=== PATIENT | female | born 1995 | race Caucasian/White ===

== ENCOUNTER 2020-07-07 16:11 | Outpatient (REF) | payer OTHER, SELFPAY | END 2020-07-07 16:12 | disposition home or self-care (01) | LOC: HO.LNP 16:11 | PROVIDERS: Visit Provider Hospitalist | DX: Z20.828 Contact with and (suspected) exposure to other viral communicable diseases (principal) | CPT/HCPCS: U0003 ==

== ENCOUNTER 2020-09-05 09:24 | Outpatient (REF) | payer OTHER, SELFPAY ==
[2020-09-05 11:18] LABS: SARS COV2 IgG Positive (Negative)
== END 2020-09-05 09:25 | disposition home or self-care (01) ==
LOC: HO.WFDLDS 09:24
PROVIDERS: PCP Internal Medicine; Visit Provider Nurse Practitioner Family
DX: Z20.828 Contact with and (suspected) exposure to other viral communicable diseases (principal)
CPT/HCPCS: 86769

== ENCOUNTER 2020-09-28 11:25 | Outpatient (REF) | payer OTHER, SELFPAY ==
[2020-09-28 14:00] LABS: MANUAL DIFF FLAG NO
[2020-09-28 14:08] LABS: Basophils Percent Auto 0.5 % (0-2); Eosinophils Absolute Auto 0.2 X10*3/uL (0.0-0.4); Eosinophils Percent Auto 2.8 % (0-4); Hematocrit 43.3 % (37-47); Hemoglobin 14.1 g/dl (12.0-16.0); Imm Gran Abs Auto 0.01 X10*3/uL (0.00-0.03); Imm Gran Pct Auto 0.2 % (0.0-0.4); Lymphocytes Absolute Auto 2.1 X10*3/uL (1.2-4.9); Mean Corpuscular HGB Conc 32.6 g/dl (31.0-35.0); Mean Corpuscular Hemoglobin 28.1 pg (27.0-33.0); Mean Corpuscular Volume 86.4 fL (80-98); Mean Platelet Volume 11.2 fL (9.4-12.3); Monocytes Absolute Auto 0.3 X10*3/uL (0.1-1.2); Monocytes Percent Auto 5.5 % (2-11); Platelet Count 223 X10*3/uL (160-400); Red Blood Count 5.01 X10*6/uL (4.20-5.50); Red Cell Distribution Width 13.2 % (11.0-16.0); White Blood Count 5.6 X10*3/uL (4.8-10.8)
[2020-09-28 14:14] LABS: D Dimer < 200 NG/ML
[2020-09-28 14:37] LABS: Anion Gap 11 (12-20); Blood Urea Nitrogen 11 mg/dL (9-16); Calcium 9.4 mg/dL (8.4-10.2); Carbon Dioxide 28 mmol/L (22-29); Chloride 104 mmol/L (96-108); Estimated Glomerular Filt Rate > 60; Glucose Random 81 mg/dL (60-115); Potassium 4.4 mmol/l (3.3-5.1); Sodium 139 mmol/L (135-145)
[2020-09-28 15:00] LABS: TSH reflex Free T4 0.73 mIU/mL (0.32-4.0)
== END 2020-09-28 11:26 | disposition home or self-care (01) ==
LOC: HO.HMGCLDS 11:25
PROVIDERS: PCP Internal Medicine; Visit Provider Nurse Practitioner Family
DX: R51.9 Headache, unspecified (principal)
CPT/HCPCS: 36415; 80048; 84443; 85025; 85379

== ENCOUNTER 2020-10-03 09:01 | Outpatient (REF) | payer OTHER, SELFPAY ==
[2020-10-04 09:46] LABS: BV Int Neg Control Negative (Negative); BV Int Pos Control Positive (Positive)
[2020-10-04 19:02] LABS: C. trachomatis RNA TMA NOT DETECTED (NOT DETECTED); N. gonorrhoeae RNA TMA NOT DETECTED (NOT DETECTED)
== END 2020-10-03 09:02 | disposition home or self-care (01) ==
LOC: HO.LAB 09:01
PROVIDERS: PCP Internal Medicine; Visit Provider Advanced Practice Midwife
DX: Z01.419 Encounter for gynecological examination (general) (routine) without abnormal findings (principal); R10.31 Right lower quadrant pain; N92.5 Other specified irregular menstruation
CPT/HCPCS: 36415; 81025; 87480; 87491; 87510; 87591; 87660; 88142

== ENCOUNTER 2020-10-05 11:37 | Outpatient (REF) | payer OTHER, SELFPAY ==
[2020-10-05 12:25] LABS: Influenza A PCR NEGATIVE (Negative); Influenza B PCR NEGATIVE (Negative); Resp Syncy Virus RNA Qual PCR NEGATIVE (Negative); SARS COV2 PCR INHOUSE NEGATIVE (Negative)
== END 2020-10-05 11:38 | disposition home or self-care (01) ==
LOC: HO.LNP 11:37
PROVIDERS: Visit Provider Physician Assistant
DX: J02.9 Acute pharyngitis, unspecified (principal); R68.89 Other general symptoms and signs; Z20.822 Contact with and (suspected) exposure to COVID-19
CPT/HCPCS: 0241U

== ENCOUNTER 2020-10-16 10:42 | Outpatient (REF) | payer OTHER, SELFPAY ==
--- NOTE | ~2020-10-16 | US_ITS ---
EXAMINATION: US PELVIS COMPLETE US PELVIS TRANSVAGINAL CLINICAL INFORMATION: Pelvic pain. LMP 10/11/2020. COMPARISON: CT abdomen/pelvis dated 05/13/2013 and pelvic ultrasound dated 12/19/2009. TECHNIQUE: Transabdominal and transvaginal Imaging was performed. FINDINGS: The uterus is of normal size and echogenicity measuring 10 x 2.6 x 4.1 cm. A regular homogeneous endometrium is identified measuring 0.2 cm. Both ovaries are of normal size and echogenicity. The right measures 4.3 x 2.6 x 3.5 cm for a volume of 20.3 mL. Multiple simple right ovarian cysts versus dominant follicles measuring up to 3.1, 1.6, and 1.4 cm. The left measures 3.3 x 1.8 x 2.3 cm for a volume of 7.4 mL. There is no pelvic free fluid. US/US pelvic complete IMPRESSION: 1. Multiple right ovarian cysts versus dominant follicles measuring up to 3.1 cm. 2. Sonographically unremarkable uterus, endometrium, and left ovary.
--- NOTE | ~2020-10-16 | US_ITS ---
EXAMINATION: US PELVIS COMPLETE US PELVIS TRANSVAGINAL CLINICAL INFORMATION: Pelvic pain. LMP 10/11/2020. COMPARISON: CT abdomen/pelvis dated 05/13/2013 and pelvic ultrasound dated 12/19/2009. TECHNIQUE: Transabdominal and transvaginal Imaging was performed. FINDINGS: The uterus is of normal size and echogenicity measuring 10 x 2.6 x 4.1 cm. A regular homogeneous endometrium is identified measuring 0.2 cm. Both ovaries are of normal size and echogenicity. The right measures 4.3 x 2.6 x 3.5 cm for a volume of 20.3 mL. Multiple simple right ovarian cysts versus dominant follicles measuring up to 3.1, 1.6, and 1.4 cm. The left measures 3.3 x 1.8 x 2.3 cm for a volume of 7.4 mL. There is no pelvic free fluid. US/US transvaginal IMPRESSION: 1. Multiple right ovarian cysts versus dominant follicles measuring up to 3.1 cm. 2. Sonographically unremarkable uterus, endometrium, and left ovary.
== END 2020-10-16 10:43 | disposition home or self-care (01) ==
LOC: HO.US 10:42
PROVIDERS: Visit Provider Advanced Practice Midwife
DX: R10.2 Pelvic and perineal pain (principal)
CPT/HCPCS: 76830; 76856

== ENCOUNTER 2020-10-24 10:23 | Outpatient (REF) | payer OTHER, SELFPAY ==
[2020-10-24 12:25] LABS: Vitamin D 25-OH Total 18.1 ng/mL (>30)
[2020-10-25 09:10] LABS: SARS COV2 IgG Positive (Negative)
[2020-10-25 17:36] LABS: C. trachomatis RNA TMA NOT DETECTED (NOT DETECTED); N. gonorrhoeae RNA TMA NOT DETECTED (NOT DETECTED)
== END 2020-10-24 10:24 | disposition home or self-care (01) ==
LOC: HO.HMGCLDS 10:23
PROVIDERS: PCP Internal Medicine; Visit Provider Internal Medicine
DX: R51.9 Headache, unspecified (principal); R42 Dizziness and giddiness; Z86.16 Personal history of COVID-19; Z01.84 Encounter for antibody response examination
CPT/HCPCS: 36415; 82306; 86769; 87491; 87591

== ENCOUNTER → 2020-10-30 12:39 | Outpatient (BNVA) | payer OTHER, SELFPAY | PROVIDERS: PCP Internal Medicine; Visit Provider Advanced Practice Midwife | DX: Z71.2 Person consulting for explanation of examination or test findings (principal); N83.209 Unspecified ovarian cyst, unspecified side; R10.2 Pelvic and perineal pain | CPT/HCPCS: Q3014 ==

== ENCOUNTER 2020-11-21 11:36 | Outpatient (REF) | payer OTHER, SELFPAY ==
[2020-11-21 16:14] LABS: CT PCR NOT DETECTED (Not Detect.); NG PCR NOT DETECTED (Not Detect.)
[2020-11-22 09:05] LABS: BV Int Neg Control Negative (Negative); BV Int Pos Control Positive (Positive)
== END 2020-11-21 11:37 | disposition home or self-care (01) ==
LOC: HO.LAB 11:36
PROVIDERS: PCP Internal Medicine; Visit Provider Advanced Practice Midwife
DX: R10.2 Pelvic and perineal pain (principal); Z20.2 Contact with and (suspected) exposure to infections with a predominantly sexual mode of transmission; Z32.02 Encounter for pregnancy test, result negative
CPT/HCPCS: 81003; 81025; 87480; 87491; 87510; 87591; 87660; 99212

== ENCOUNTER 2020-12-19 10:55 | Outpatient (REF) | payer OTHER, SELFPAY ==
--- NOTE | ~2020-12-19 | US_ITS ---
EXAMINATION: US PELVIC COMPLETE US TRANSVAGINAL CLINICAL INFORMATION: Pelvic and perineal pain. COMPARISON: Ultrasound pelvis 10/16/2020. TECHNIQUE: Transabdominal and transvaginal imaging if the pelvis is performed. FINDINGS: The uterus is anteverted measuring 9.6 cm in length, 2.9 cm AP and 4.1 cm in transverse dimension. The uterus is homogeneous in echotexture. The endometrial thickness is 0.29 cm. The right ovary measures 3.7 x 3.2 x 3.7 cm and volume 22.7 mL. There is a simple anechoic cyst measuring 3.3 x 2.6 x 3.3 cm. Previously the right ovary measured 4.3 x 2.6 x 3.5 cm and volume 20.3 mL. The left ovary measures 3.0 x 2.0 x 2.8 cm and volume 13.1 mL. There is a simple anechoic cyst measuring 2.2 x 2.0 x 1.8 cm. Previously the left ovary measured 3.3 x 1.8 x 2.3 cm and volume 7.4 mL. There is small amount of free fluid in the cul-de-sac. US/US transvaginal IMPRESSION: Bilateral simple ovarian cysts. The uterus is unremarkable. There is trace small amount of free fluid in the cul-de-sac.
--- NOTE | ~2020-12-19 | US_ITS ---
EXAMINATION: US PELVIC COMPLETE US TRANSVAGINAL CLINICAL INFORMATION: Pelvic and perineal pain. COMPARISON: Ultrasound pelvis 10/16/2020. TECHNIQUE: Transabdominal and transvaginal imaging if the pelvis is performed. FINDINGS: The uterus is anteverted measuring 9.6 cm in length, 2.9 cm AP and 4.1 cm in transverse dimension. The uterus is homogeneous in echotexture. The endometrial thickness is 0.29 cm. The right ovary measures 3.7 x 3.2 x 3.7 cm and volume 22.7 mL. There is a simple anechoic cyst measuring 3.3 x 2.6 x 3.3 cm. Previously the right ovary measured 4.3 x 2.6 x 3.5 cm and volume 20.3 mL. The left ovary measures 3.0 x 2.0 x 2.8 cm and volume 13.1 mL. There is a simple anechoic cyst measuring 2.2 x 2.0 x 1.8 cm. Previously the left ovary measured 3.3 x 1.8 x 2.3 cm and volume 7.4 mL. There is small amount of free fluid in the cul-de-sac. US/US pelvic complete IMPRESSION: Bilateral simple ovarian cysts. The uterus is unremarkable. There is trace small amount of free fluid in the cul-de-sac.
== END 2020-12-19 10:56 | disposition home or self-care (01) ==
LOC: HO.US 10:55
PROVIDERS: PCP Internal Medicine; Visit Provider Advanced Practice Midwife
DX: R10.2 Pelvic and perineal pain (principal); N83.209 Unspecified ovarian cyst, unspecified side
CPT/HCPCS: 76830; 76856

== ENCOUNTER → 2020-12-28 13:40 | Outpatient (BNVA) | payer OTHER, SELFPAY | PROVIDERS: Visit Provider Obstetrics & Gynecology | DX: R10.2 Pelvic and perineal pain (principal); N83.201 Unspecified ovarian cyst, right side; N83.202 Unspecified ovarian cyst, left side | CPT/HCPCS: Q3014 ==

== ENCOUNTER 2021-02-27 14:36 | Outpatient (REF) | payer OTHER, SELFPAY ==
[2021-02-28 09:40] LABS: BV Int Neg Control Negative (Negative); BV Int Pos Control Positive (Positive)
== END 2021-02-27 14:37 | disposition home or self-care (01) ==
LOC: HO.LAB 14:36
PROVIDERS: PCP Internal Medicine; Visit Provider Advanced Practice Midwife
DX: R10.2 Pelvic and perineal pain (principal); N92.1 Excessive and frequent menstruation with irregular cycle; L70.9 Acne, unspecified
CPT/HCPCS: 81025; 87480; 87510; 87660; 99212

== ENCOUNTER → 2021-04-09 14:41 | Outpatient (BNVA) | payer OTHER, SELFPAY | PROVIDERS: Visit Provider Advanced Practice Midwife ==

== ENCOUNTER → 2021-04-12 14:59 | Outpatient (BNVA) | payer OTHER, SELFPAY | PROVIDERS: PCP Internal Medicine; Visit Provider Advanced Practice Midwife | DX: N92.1 Excessive and frequent menstruation with irregular cycle (principal) | CPT/HCPCS: 96372; 99211 ==

== ENCOUNTER → 2021-07-04 12:57 | Outpatient (BNVA) | payer OTHER, SELFPAY | PROVIDERS: Visit Provider Advanced Practice Midwife | DX: Z30.42 Encounter for surveillance of injectable contraceptive (principal) | CPT/HCPCS: 96372; 99211 ==

== ENCOUNTER 2021-09-18 09:23 | Outpatient (REF) | payer OTHER, SELFPAY ==
[2021-09-18 15:36] LABS: CT PCR NOT DETECTED (Not Detect.); NG PCR NOT DETECTED (Not Detect.)
== END 2021-09-18 09:24 | disposition home or self-care (01) ==
LOC: HO.LAB 09:23
PROVIDERS: Visit Provider Obstetrics & Gynecology
DX: Z11.3 Encounter for screening for infections with a predominantly sexual mode of transmission (principal); R10.2 Pelvic and perineal pain
CPT/HCPCS: 87491; 87591; 99212

== ENCOUNTER → 2021-09-24 14:49 | Outpatient (BNVA) | payer OTHER, SELFPAY | PROVIDERS: Visit Provider Advanced Practice Midwife | DX: Z30.42 Encounter for surveillance of injectable contraceptive (principal) | CPT/HCPCS: 96372; 99211 ==

== ENCOUNTER 2021-10-11 08:24 | Outpatient (REF) | payer OTHER, SELFPAY ==
--- NOTE | ~2021-10-11 | CT_ITS ---
EXAMINATION: CT ABDOMEN AND PELVIS WITH CONTRAST CLINICAL INFORMATION: Pelvic and perineal pain. COMPARISON: CT abdomen and pelvis without contrast 05/13/2013 TECHNIQUE: Multidetector volumetric images were obtained from the superior aspect of the liver through the pubic symphysis following administration 85 mL of Omnipaque 350 intravenous contrast. Sagittal and coronal reformatted images were obtained on the technologist's workstation. Oral contrast: No This CT examination was performed using dose optimization techniques as appropriate, variously including the following: *Automated exposure control *Adjustment of mA and/or kV according to patient size (this includes techniques or standardized protocols for targeted exams where dose is matched to indication/reason for exam; i.e. extremities or head) *Use of iterative reconstruction technique DLP: 421 mGy-cm FINDINGS: LUNG BASES: The lung bases are clear. The heart size is normal. LIVER, GALLBLADDER, AND BILIARY TREE: The liver is normal in size, shape, and attenuation. No focal hepatic lesion or biliary ductal dilatation is present. The gallbladder is unremarkable with no evidence of radiopaque gallstones, gallbladder wall thickening, or obvious pericholecystic inflammatory changes. PANCREAS: Unremarkable. SPLEEN: Unremarkable. ADRENAL GLANDS: Unremarkable. KIDNEYS AND URETERS: The kidneys are normal in size, shape, and attenuation. No hydronephrosis, hydroureter, or calculi seen. No perinephric stranding. BLADDER: Unremarkable. GASTROINTESTINAL TRACT: There is scattered stool, oral contrast and gas seen throughout the colon without significant distention. The small bowel loops are normal caliber. Appendix is normal caliber. ABDOMINAL WALL: A tiny umbilical hernia is seen containing fat. LYMPH NODES: Normal. VASCULAR: Unremarkable. PELVIC VISCERA: There is a 3.7 x 3.7 x 2.0 cm lesion right adnexa probable cyst. The uterus is anteverted and appears unremarkable. There is no pelvic or perineal mass or abscess. OSSEOUS STRUCTURES: No lytic or sclerotic process seen. CT/CT abdomen pelvis w con IMPRESSION: 2.8 cm right ovarian cyst. Unremarkable uterus. There is no pelvic mass, free fluid, abnormal lymph nodes or abscess. Fleischner guidelines were followed.
[2021-10-11] MEDS: iohexoL 350 MG/ML 100 ML INFUS..BTL IV (11:24)
[2021-10-11] MEDS: Barium Sulfate Oral (Berry) 450 ML ORAL.SUSP 900 ML PO (11:25)
== END 2021-10-11 08:25 | disposition home or self-care (01) ==
LOC: HO.CT 08:24
PROVIDERS: Absent Provider Internal Medicine; PCP Internal Medicine; Visit Provider Obstetrics & Gynecology
DX: R10.2 Pelvic and perineal pain (principal)
CPT/HCPCS: 74177; Q9967

== ENCOUNTER 2021-10-23 13:28 | Outpatient (REF) | payer OTHER, SELFPAY ==
[2021-10-23 14:32] LABS: Alanine Aminotransferase 9 U/L (0-31); Anion Gap 13 (12-20); Aspartate Amino Transferase 16 U/L (5-31); Blood Urea Nitrogen 8 mg/dL (9-16); Calcium 9.6 mg/dL (8.4-10.2); Carbon Dioxide 24 mmol/L (22-29); Chloride 107 mmol/L (96-108); Cholesterol 225 mg/dL; Estimated Glomerular Filt Rate > 60; Glucose Fasting 75 mg/dL (60-99); HDL Cholesterol 49 mg/dL; LDL Cholesterol Calculated 159 mg/dl; Sodium 140 mmol/L (135-145); Triglycerides 89 mg/dL
[2021-10-23 14:43] LABS: Vitamin D 25-OH Total 81.8 ng/mL (>30)
[2021-10-23 16:29] LABS: TSH reflex Free T4 0.88 uIU/mL (0.32-4.0)
[2021-10-23 16:49] LABS: Folate 11.1 ng/mL (> or = 4.0); Vitamin B12 249 pg/mL (200-900)
[2021-10-26 08:01] LABS: Transglutaminase Ab IgG <1.0 U/mL; Transglutaminase IgA <1.0 U/mL
== END 2021-10-23 13:29 | disposition home or self-care (01) ==
LOC: HO.LAB 13:28
PROVIDERS: PCP Internal Medicine; Visit Provider Nurse Practitioner Family
DX: Z00.01 Encounter for general adult medical examination with abnormal findings (principal); R10.11 Right upper quadrant pain; R14.0 Abdominal distension (gaseous); R19.7 Diarrhea, unspecified; E78.5 Hyperlipidemia, unspecified; K21.9 Gastro-esophageal reflux disease without esophagitis
CPT/HCPCS: 36415; 80048; 80061; 82306; 82607; 82746; 84443; 84450; 84460; 86364; 99212

== ENCOUNTER → 2021-10-30 12:09 | Outpatient (BNVA) | payer OTHER, SELFPAY | PROVIDERS: Visit Provider Obstetrics & Gynecology ==

== ENCOUNTER 2021-11-30 15:27 | Outpatient (REF) | payer OTHER, SELFPAY ==
--- NOTE | ~2021-11-30 | US_ITS ---
EXAMINATION: US PELVIS CLINICAL INFORMATION: Ovarian cyst COMPARISON: Previous pelvic ultrasound most recent December [address] of the abdomen and pelvis October 2021 TECHNIQUE: Ultrasound of the pelvis is performed using both transabdominal and transvaginal transducers along with Doppler. Transvaginal imaging is performed due to inadequate visualization transabdominally. FINDINGS: The uterus is anteverted and measures 8 x 3.2 x 4.3 cm in dimension. No focal uterine lesion is seen. Endometrial thickness is normal measuring 0.3 cm. The right ovary is enlarged and measures 4.3 x 3.7 x 4.1 cm. There is a 3.7 x 3.3 x 3.6 cm minimally complex cyst with single thin septation or daughter cyst. This is similar to previous CT October 2021. It is uncertain whether this could represent the same cyst seen December 2020. The left ovary measures 3.3 x 2.1 x 2 cm. There are several small left ovarian cysts or follicles, largest measuring 1 cm. There is no fluid in the pelvis. US/US pelvic and transvaginal IMPRESSION: Enlarged right ovary and 3.7 x 3.3 x 3.6 cm right ovarian cyst similar to previous CT October 2021.
== END 2021-11-30 15:28 | disposition home or self-care (01) ==
LOC: HO.US 15:27
PROVIDERS: Visit Provider Obstetrics & Gynecology
DX: N83.209 Unspecified ovarian cyst, unspecified side (principal)
CPT/HCPCS: 76830; 76856

== ENCOUNTER → 2021-12-13 15:07 | Outpatient (BNVA) | payer OTHER, SELFPAY | PROVIDERS: Visit Provider Advanced Practice Midwife | DX: Z30.42 Encounter for surveillance of injectable contraceptive (principal) | CPT/HCPCS: 96372; 99211 ==

== ENCOUNTER 2022-01-03 15:20 | Outpatient (REF) | payer OTHER, SELFPAY ==
[2022-01-06 00:16] LABS: TS Negative Control Passed; TS Panel A 0; TS Panel B 0; TS Positive Control Passed; TSpotTB Negative (Negative)
[2022-01-07 19:47] LABS: Mumps Virus IgG Antibody <9.00 AU/mL; Rubeola IgG (Measles) <13.50 AU/mL
== END 2022-01-03 15:21 | disposition home or self-care (01) ==
LOC: HO.LAB 15:20
PROVIDERS: PCP Internal Medicine; Visit Provider Internal Medicine
DX: Z01.84 Encounter for antibody response examination (principal); Z11.1 Encounter for screening for respiratory tuberculosis
CPT/HCPCS: 36415; 86481; 86735; 86762; 86765

== ENCOUNTER 2022-01-23 18:48 | Outpatient (REF) | payer OTHER, SELFPAY ==
--- NOTE | ~2022-01-23 | MR_ITS ---
MRI OF THE BRAIN WITHOUT IV CONTRAST INDICATION: Seizures. COMPARISON: None available. TECHNIQUE: Multiplanar multisequence MR imaging of the brain was obtained without IV contrast. FINDINGS: There is no hydrocephalus, extra-axial surface collection, or herniation. Hippocampi are symmetric in size and normal in morphology without intrinsic signal abnormality. No parenchymal signal abnormality elsewhere. The major flow voids at the skull base are preserved. There is no acute infarct on diffusion-weighted imaging. There is no intracranial hemorrhage on the gradient recalled echo acquisition. 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 The cerebellar tonsils are normally positioned. The cerebellum and brainstem are normal. The craniocervical junction is normal. Osseous marrow signal intensity is homogenous. The visualized soft tissues are unremarkable. MR/MR head/brain wo con IMPRESSION: - No seizure foci identified in this noncontrast MRI of the brain. No mesial temporal sclerosis, no malformation of cortical development, and no parenchymal signal abnormality. 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
== END 2022-01-23 18:49 | disposition home or self-care (01) ==
LOC: HO.MRI 18:48
PROVIDERS: PCP Internal Medicine; Visit Provider Psychiatry & Neurology Neurology
DX: G40.909 Epilepsy, unspecified, not intractable, without status epilepticus (principal)
CPT/HCPCS: 70551

== ENCOUNTER 2022-03-06 15:36 | Outpatient (REF) | payer OTHER, SELFPAY ==
[2022-03-06 18:38] LABS: CT PCR NOT DETECTED (Not Detect.); NG PCR NOT DETECTED (Not Detect.)
== END 2022-03-06 15:37 | disposition home or self-care (01) ==
LOC: HO.LAB 15:36
PROVIDERS: Visit Provider Obstetrics & Gynecology
DX: Z30.42 Encounter for surveillance of injectable contraceptive (principal); R10.2 Pelvic and perineal pain
CPT/HCPCS: 87491; 87591; 96372

== ENCOUNTER 2022-03-12 10:56 | Outpatient (REF) | payer OTHER, SELFPAY ==
--- NOTE | ~2022-03-12 | US_ITS ---
EXAMINATION: US PELVIS CLINICAL INFORMATION: Ovarian cyst COMPARISON: Pelvic ultrasound 11/30/2021 TECHNIQUE: Ultrasound of the pelvis is performed using both transabdominal and transvaginal transducers along with Doppler. Transvaginal imaging is performed due to inadequate visualization transabdominally. FINDINGS: Uterus: The uterus is anteverted and measures 10.0 x 3.8 x 4.4 cm. Trace fluid is noted in the endocervical canal. The double wall endometrial thickness is 4 mm. The uterus is smooth in contour and has normal myometrial echogenicity. No visible fibroid. Adnexa: Both ovaries are visualized. There is normal color flow to the adnexa. There is no ovarian torsion. Trace simple pelvic free fluid within physiologic limits of volume. Right ovary measures 4.9 x 3.9 x 4.2 cm. The right ovary is remarkable for a 4.4 cm x 3.4 x 3.8 cm unilocular almost certainly benign cyst, previously injuring 3.7 x 3.3 x 3.6 cm. Left ovary measures 3.6 x 2.4 x 2.9 cm. Ovaries unremarkable. US/US pelvic and transvaginal IMPRESSION: Slight increase in size of a 4.4 cm simple right ovarian cyst, almost certainly benign. No follow-up imaging recommended. Trace fluid within the endocervical canal.
== END 2022-03-12 10:57 | disposition home or self-care (01) ==
LOC: HO.US 10:56
PROVIDERS: Visit Provider Obstetrics & Gynecology
DX: N83.299 Other ovarian cyst, unspecified side (principal)
CPT/HCPCS: 76830; 76856

== ENCOUNTER 2022-03-29 10:57 | Day surgery (SDC) | payer OTHER, SELFPAY ==
--- NOTE | 2022-03-28 11:53 | HO.ANESPROP2 ---
Documented by User: Ann Marie Browning NP 03/28/22 11:54 HPI - Anesthesia Eval Consult details Narrative: 27yo F for Upper Endoscopy last seizure 01/2022 Nml EEG and head CT per neuro OV note PMFSH Active Problems Active Problems: All Active Problems (Updated 03/26/22 @ 15:18 by Evans Gonsales MD) Seasonal allergies (Acute) Encounter for screening laboratory testing for COVID-19 virus in asymptomatic patient (Acute) Severe frontal headaches (Acute) Dizziness (Acute) Flu-like symptoms (Acute) Sore throat (Acute) Tachycardia (Acute) Ovarian cyst (Acute) Breakthrough bleeding on OCPs (Acute) Acne (Acute) Cervicalgia (Acute) Depot contraception (Acute) Head cold (Acute) Seasonal allergies (Acute) Female pelvic pain (Acute) Complex ovarian cyst (Acute) Generalized anxiety disorder (Acute) Well woman exam (Acute) Contraceptive management (Acute) Seizure disorder (Acute) Chronic GERD (Acute) Endometriosis (Acute) History of COVID-19 (Acute) Anxiety (Acute) Past Medical History Medical History Anxiety Chronic GERD COVID-19 COVID-19 virus detected Endometriosis History of COVID-19 Seizure disorder Family History Family History Father Diabetes mellitus Mother HTN (hypertension) Arrhythmia Depression Hx of cholecystectomy Maternal Grandmother Cancer Uterine cancer Maternal Grandfather CVD (cardiovascular disease) History of heart attack Paternal Grandmother Cancer Paternal Grandfather Diabetes mellitus Paternal Aunt Breast cancer History of open heart surgery Paternal Uncle Diabetes mellitus Brother Substance use disorder Surgical History Surgical History History of esophagogastroduodenoscopy (EGD) Hx of tonsillectomy [place] teeth removed Social History Social History Housing: House Alcohol intake: current Alcohol intake frequency: holidays/special occasions only Patient Tobacco Use Status: Never used Tobacco e-Cigarette/Vaping Use: Never Used Second Hand Smoke Exposure: No Use of substances other than those prescribed or required for medical reasons: No Are you DNR?: No Advance Directives: No Advance Directives Information Provided: Yes Advance Directives on File: No service: No Current occupational status: employed Cognitive needs: No Hearing needs: No Vision needs: Yes Meds Allergies Allergy/AdvReac Type Severity Reaction Status Date / Time amoxicillin [AMOXICILLIN] Allergy Intermediate rash Verified 03/06/22 15:10 Penicillins [PENICILLINS] Allergy Unknown rash as Verified 03/06/22 15:10 above Home Medications Medication Instructions Recorded Confirmed Last Taken Type fexofenadine 180 mg tablet 180 mg PO Q24H 02/27/21 03/25/22 Unknown History (Nelly Allergy) Exam Exam Date and Time: March 28, 2022 1153 Pertinent Lab Results Pertinent Lab Results: Laboratory Tests 10/23/21 15:38 Sodium 140 Potassium 4.0 Chloride 107 Carbon Dioxide 24 BUN 8 L Creatinine 0.79 Assessment and Plan Assessment Anesthesia Assessment: Chart Reviewed Documented by User: Denise Echeverria MD 03/29/22 12:24 PMFSH Past Medical History Medical History Anxiety Chronic GERD COVID-19 COVID-19 virus detected Endometriosis History of COVID-19 Seizure disorder Family History Family History Father Diabetes mellitus Mother HTN (hypertension) Arrhythmia Depression Hx of cholecystectomy Maternal Grandmother Cancer Uterine cancer Maternal Grandfather CVD (cardiovascular disease) History of heart attack Paternal Grandmother Cancer Paternal Grandfather Diabetes mellitus Paternal Aunt Breast cancer History of open heart surgery Paternal Uncle Diabetes mellitus Brother Substance use disorder Family history of problems with anesthesia: No Surgical History Surgical History History of esophagogastroduodenoscopy (EGD) Hx of tonsillectomy [place] teeth removed History of Problems with Anesthesia: No Social History Social History Housing: House Alcohol intake: current Alcohol intake frequency: holidays/special occasions only Patient Tobacco Use Status: Never used Tobacco e-Cigarette/Vaping Use: Never Used Second Hand Smoke Exposure: No Use of substances other than those prescribed or required for medical reasons: No Are you DNR?: No Advance Directives: No Advance Directives Information Provided: Yes Advance Directives on File: No service: No Current occupational status: employed Cognitive needs: No Hearing needs: No Vision needs: Yes Meds Allergies Allergy/AdvReac Type Severity Reaction Status Date / Time amoxicillin [AMOXICILLIN] Allergy Intermediate rash Verified 03/06/22 15:10 Penicillins [PENICILLINS] Allergy Unknown rash as Verified 03/06/22 15:10 above Home Medications Medication Instructions Recorded Confirmed Last Taken Type fexofenadine 180 mg tablet 180 mg PO Q24H 02/27/21 03/25/22 Unknown History (Nelly Allergy) Exam Airway Mallampati Class: I TM Dist: >3cm Neck ROM: Full Assessment and Plan Assessment Anesthesia Assessment: Anesthesia Plan Discussed Final Anesthetic Review Family History of Problems with Anesthesia: No History of Problems with Anesthesia: No NPO: Yes ASA Class: II Final Preanesthetic Review: No Changes in Pt Med Stat, Meds/Allgs Chart Reviewed, Consent Obtained/Reviewed and Anes Risks/Benef Reviewed Patient Risk: Low Procedure Risk: Low Anesthetic Plan Anesthetic Plan: MAC: Disposition: Standard PACU
[2022-03-29 11:07] VITALS: BMI 29.9
[2022-03-29 11:21] VITALS: BP 109/79; PULSE 74; RESP 16; TEMP 37.1; O2SAT 96
[2022-03-29 11:27] LABS: UPreg QC Valid YES; Urine Pregnancy NEGATIVE (NEGATIVE)
[2022-03-29] MEDS: Lactated Ringers 1,000 ML 100 ML IVCONT (11:27)
--- NOTE | 2022-03-29 11:38 | MHC.SHP ---
Pre-Procedural Eval Section A Date of Service: 03/29/22 The patient is an INPATIENT: No The History & Physical has been completed within 30 days and I have reviewed it.: No Section B Chief Complaint: reflux Details of Present Illness: GERD Relevant Family History (Specify if Yes): Yes Relevant Social History: None Present Medications: see Short Stay Collaborative assessment Medical History: Significant History (Anxiety Chronic GERD COVID-19 COVID-19 virus detected Endometriosis) Allergies: Allergies Allergy/AdvReac Type Severity Reaction Status Date / Time amoxicillin [AMOXICILLIN] Allergy Intermediate rash Verified 03/06/22 15:10 Penicillins [PENICILLINS] Allergy Unknown rash as Verified 03/06/22 15:10 above Review of Systems Sugical H&P ROS: Negative: Cardiovascular, Respiratory and Gastrointestinal Exam Surgical H&P Exam: Normal: Heart, Normal: Lungs and Normal: Extremities Plan Diagnosis/Plan: Unchanged I have reviewed the history and physical and performed a pertinent physical examination on my patient. No changes have occurred unless specified.
--- NOTE | 2022-03-29 12:48 | P.BOP_ITS ---
Brief Operative Note Date of Service: 03/29/22 Pre-op diagnosis: GERD, abdominal bloating Post-op diagnosis: other (GERD, nodular gastritis) Procedure: FLEXIBLE TRANSORAL UPPER GASTROINTESTINAL ENDOSCOPY WITH BIOPSIES Consent: Indications for the procedure and potential complications of bleeding, perforation, reaction to medications and missed diagnosis were discussed with the patient and informed consent was obtained. Instrument: Olympus GIF H 190 mid size upper endoscope Monitoring: Vital signs and clinical assessment, continuous EKG monitoring, Pulse oximetry, Carbon Dioxide monitoring and blood pressure monitoring were done throughout the procedure. Procedure: The patient was placed in the left lateral decubitis position and pre-procedure medications were administered and a bite block was placed. The endoscope was inserted into the mouth and advanced under direct vision to the third part of duodenum. A careful inspection was made as the upper endoscope was withdrawn including a retroflexed examination of the proximal stomach; Findings and interventions are described below. Findings: Larynx: Normal Esophagus: GE junction at 35 cms. No esophagitis or Jain's. Stomach: Nodular appearing gastric mucosa in the gastric body and fundus - biopsied. Mild gastric erythema. Biopsies were obtained. Grade 2 flap valve on retroflexed examination of the cardia. Duodenum: Normal bulb and descending duodenum. Biopsies were obtained from 3rd part of the duodenum to check for celiac sprue Intervention: Biopsies as noted above Impression and Post Procedure Diagnosis: Endoscopy Findings: STOMACH: Nodular appearing gastric mucosa in the gastric body and fundus - biop sied. Mild gastric erythema. Biopsies were obtained. DUODENUM: Normal - biopsied to check for celiac sprue. Plan: Await pathology results Patient has an appointment on 04/12/22 in the GI Clinic with Selina Jaramillo FNP-BC . Above findings were reviewed with the patient and GERD handout was given in the discharge area Surgeon: Michelle Rondon MD Anesthesia: MAC Was an Senior Environmental Practice Leader used for this Procedure?: Yes Senior Environmental Practice Leader: Ion Mayfield Estimated blood loss (mL): 0 Pathology: other (A: SMALL BOWEL BXS B: GASTRIC ANTRUM R/O H PYLORI C: GASTRIC BODY BXS) Condition: stable Disposition: PACU
[2022-03-29 12:50] VITALS: BP 116/50; PULSE 70; RESP 16; TEMP 36.4; O2SAT 96
[2022-03-29 13:15] VITALS: BP 131/89; PULSE 66; RESP 16; O2SAT 100
--- NOTE | 2022-03-31 14:32 | W.PM.OPN ---
Operative Note Operative Note Date of Service: 03/29/22 Narrative: Pre-op diagnosis: GERD, abdominal bloating Post-op diagnosis:?other (GERD, nodular gastritis) Procedure: FLEXIBLE TRANSORAL UPPER GASTROINTESTINAL ENDOSCOPY WITH BIOPSIES Consent:?Indications for the procedure and potential complications of bleeding, perforation, reaction to medications and missed diagnosis were discussed with the patient and informed consent was obtained. Instrument:?Olympus GIF H 190 mid size upper endoscope Monitoring: Vital signs and clinical assessment, continuous EKG monitoring, Pulse oximetry, Carbon Dioxide monitoring and blood pressure monitoring were done throughout the procedure. Procedure:?The patient was placed in the left lateral decubitis position and pre-procedure medications were administered and a bite block was placed. The endoscope was inserted into the mouth and advanced under direct vision to the third part of duodenum. A careful inspection was made as the upper endoscope was withdrawn including a retroflexed examination of the proximal stomach; Findings and interventions are described below. Findings: Larynx:? Normal Esophagus: GE junction at 35 cms. No esophagitis or Jain's. Stomach: Nodular appearing gastric mucosa in the gastric body and fundus - biopsied. Mild gastric erythema. Biopsies were obtained. Grade 2 flap valve on retroflexed examination of the cardia. Duodenum: Normal bulb and descending duodenum. Biopsies were obtained from 3rd part of the duodenum to check for celiac sprue Intervention: Biopsies as noted above Impression and Post Procedure Diagnosis: Endoscopy Findings: STOMACH: Nodular appearing gastric mucosa in the gastric body and fundus - biopsied. Mild gastric erythema. Biopsies were obtained. DUODENUM: Normal - biopsied to check for celiac sprue. Plan: Await pathology results Patient has an appointment on 04/12/22 in the GI Clinic with Selina Jaramillo FNP-BC . Above findings were reviewed with the patient and GERD handout was given in the discharge area Surgeon: Michelle Rondon MD Anesthesia:?MAC Was an Sounding Device Operator used for this Procedure?:?Yes Sounding Device Operator:?Ion Mayfield Estimated blood loss (mL):?0 Pathology:?other (A: SMALL BOWEL BXS? B: GASTRIC ANTRUM R/O H PYLORI? C: GASTRIC BODY BXS) Condition:?stable Disposition:?PACU
== END 2022-03-29 14:00 | disposition home or self-care (01) ==
PROVIDERS: Nurse Practitioner; Visit Provider Internal Medicine Gastroenterology
PROC: 0DJ08ZZ Inspection of Upper Intestinal Tract, Via Natural or Artificial Opening Endoscopic (ICD-10-PCS; CPT 43235; principal; 2022-03-29 12:10)
DX: K21.9 Gastro-esophageal reflux disease without esophagitis (principal); K29.50 Unspecified chronic gastritis without bleeding; K58.1 Irritable bowel syndrome with constipation; K59.01 Slow transit constipation; N80.9 Endometriosis, unspecified; G40.909 Epilepsy, unspecified, not intractable, without status epilepticus; F41.1 Generalized anxiety disorder; Z79.899 Other long term (current) drug therapy; Z88.0 Allergy status to penicillin; Z88.1 Allergy status to other antibiotic agents; Z86.16 Personal history of COVID-19
CPT/HCPCS: 43239; 81025; 88305; 88342; J1885

== ENCOUNTER → 2022-05-29 15:04 | Outpatient (BNVA) | payer OTHER, SELFPAY | PROVIDERS: Visit Provider Obstetrics & Gynecology | DX: Z30.42 Encounter for surveillance of injectable contraceptive (principal) | CPT/HCPCS: 96372; 99211 ==

== ENCOUNTER 2022-06-18 15:57 | Outpatient (REF) | payer OTHER, SELFPAY ==
[2022-06-18 18:16] LABS: Folate 9.9 ng/mL (> or = 4.0); Vitamin B12 196 pg/mL (200-900)
[2022-06-22 16:47] LABS: Vitamin D 25-OH, D2 <4 ng/mL; Vitamin D 25-OH, D3 27 ng/mL; Vitamin D 25-OH, Total 27 ng/mL (30-100)
== END 2022-06-18 15:58 | disposition home or self-care (01) ==
LOC: HO.LAB 15:57
PROVIDERS: Visit Provider Nurse Practitioner Family
DX: R19.7 Diarrhea, unspecified (principal); K58.9 Irritable bowel syndrome, unspecified; E55.9 Vitamin D deficiency, unspecified
CPT/HCPCS: 36415; 82306; 82607; 82746; 86003

== ENCOUNTER → 2022-07-16 09:43 | Outpatient (BNVA) | payer OTHER, SELFPAY | PROVIDERS: PCP Internal Medicine; Visit Provider Nurse Practitioner Family | DX: K21.9 Gastro-esophageal reflux disease without esophagitis (principal); R14.0 Abdominal distension (gaseous) | CPT/HCPCS: 99212 ==

== ENCOUNTER → 2022-08-19 14:54 | Outpatient (BNVA) | payer OTHER, SELFPAY | PROVIDERS: PCP Internal Medicine; Visit Provider Obstetrics & Gynecology | DX: Z30.42 Encounter for surveillance of injectable contraceptive (principal) | CPT/HCPCS: 96372; 99211 ==

== ENCOUNTER → 2022-11-11 13:54 | Outpatient (BNVA) | payer OTHER, SELFPAY | PROVIDERS: Visit Provider Advanced Practice Midwife | DX: Z30.42 Encounter for surveillance of injectable contraceptive (principal) | CPT/HCPCS: 96372; 99211 ==

== ENCOUNTER 2022-11-13 12:04 | Outpatient (AMB) | payer OTHER, SELFPAY ==
--- NOTE | 2022-11-13 12:25 | MHC.PC.OV ---
Vital Signs 11/13/22 12:41 Height 5 ft Weight 182 lb BMI 35.5 BP 124/82 Blood Pressure Location Lt brachial Position Sitting Pulse 97 Pulse Source Pulse Oximeter Pulse Oximetry (%) 98 Oxygen Delivery Method Room Air Intake Visit Reasons: Annual PE Intake Note: Pt is here today for her Physical Exam Allergies amoxicillin [AMOXICILLIN] Allergy (Intermediate, Verified 01/15/24 15:53) rash Penicillins [PENICILLINS] Allergy (Unknown, Verified 01/15/24 15:53) rash as above Medication List - Last Reconciled 11/13/22 by Willa Butler MD cholecalciferol (vitamin D3) 50 mcg PO DAILY cyanocobalamin (vitamin B-12) 1,000 mcg PO DAILY escitalopram oxalate (Lexapro) 5 mg PO DAILY lorazepam 0.5 mg PO DAILY PRN medroxyprogesterone (Depo-Provera) 150 mg IM [id number] pantoprazole 40 mg PO DAILY Tobacco use date assessed: 11/13/22 HPI Annual PE HPI Details 28-year-old lady with history of seizure disorder currently stable controlled on present treatment, followed by Neurology, has generalized anxiety disorder, stable on escitalopram and takes lorazepam as needed for acute anxiety attacks, has chronic GERD, with history of vitamin-D and B12 deficiency, endometriosis, followed by OBGYN, here today for physical exam. She has been feeling well, with no complaints at present time. [facility] Medical History (Updated 01/15/24 @ 15:56 by Willa Butler MD) Elevated liver transaminase level History of non anemic vitamin B12 deficiency Refused influenza vaccine Vitamin D deficiency B12 deficiency Obesity (BMI 30.0-34.9) Seizure disorder Chronic GERD Endometriosis Breakthrough bleeding on OCPs History of COVID-19 COVID-19 COVID-19 virus detected Anxiety Surgical History History of esophagogastroduodenoscopy (EGD) [place] teeth removed Hx of tonsillectomy Family History Father Diabetes mellitus Mother HTN (hypertension) Arrhythmia Depression Hx of cholecystectomy Maternal Grandmother Cancer Uterine cancer Maternal Grandfather CVD (cardiovascular disease) History of heart attack Paternal Grandmother Cancer Paternal Grandfather Diabetes mellitus Paternal Aunt Breast cancer History of open heart surgery Paternal Uncle Diabetes mellitus Brother Substance use disorder Social History Housing: House Alcohol intake: current Alcohol intake frequency: holidays/special occasions only Patient Tobacco Use Status: Never used Tobacco e-Cigarette/Vaping Use: Never Used Second Hand Smoke Exposure: No service: No Current occupational status: employed 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 1. Little interest or pleasure in doing things: not at all 2. Feeling down, depressed, or hopeless: not at all 3. Trouble falling or staying asleep, or sleeping too much: not at all 4. Feeling tired or having little energy: not at all 5. Poor appetite or overeating: not at all 6. Feeling bad about yourself - or that you are a failure or have let yourself or your family down: not at all 7. Trouble concentrating on things, such as reading the newspaper or watching television: not at all 8. Moving or speaking so slowly that other people could have noticed. Or the opposite - being so fidgety or restless that you have been moving around a lot more than usual: not at all 9. Thoughts that you would be better off or of hurting yourself in some way: not at all Total score: 0 Depression Screening Interpretation: Negative 89819 - PHQ-9 Billing: Yes Source: Developed by Drs. Nick Rodrigues, Korina Ott, Jeremy Lew and colleagues, with an educational jailene from [employer]. Thrive Questionnaire Declines Thrive assessment: No Date Thrive assessed: 11/13/22 I am a: Patient What is your living situation today?: I have a steady place to live Within the past 12 months, did the food you bought not last and you didn't have the money to get more?: Never true Within the past 12 months, did you worry whether your food would run out before you got money to buy more?: Never true Do you have trouble paying for medicines?: No Do you have trouble getting transportation to medical appointments?: No Do you have trouble paying your heating and electricity bill?: No Do you have trouble taking care of your child, family member or friend?: No Do you have trouble with day-to-day activities such as bathing, preparing meals, shopping, managing finances, etc.?: No Are you currently unemployed and looking for a job?: No Are you interested in more education?: No AUDIT C Alcohol Use Questionnaire (AUDIT-C) 1. How often do you have a drink containing alcohol?: Monthly or less 2. How many drinks containing alcohol do you have on a typical day when you are drinking?: 1 or 2 3. How often do you have six or more drinks on one occasion?: Never Total Score: 1 MARIELY-7 AMB Questionnaire MARIELY-7 Date MARIELY - 7 assessed: 11/13/22 Feeling nervous, anxious, or on edge: 1 = Several days Not being able to stop or control worryin = Not at all Worrying too much about different things: 0 = Not at all Trouble relaxin = Not at all Being so restless that it is hard to sit still: 0 = Not at all Becoming easily annoyed or irritable: 1 = Several days Feeling afraid as if something awful might happen: 0 = Not at all Total MARIELY-7 score (0-4 normal; 5-9 mild; 10-14 moderate; 15-21 severe): 2 Source: Developed by Drs. Nick Rodrigues, Korina Ott, Jeremy Lew and colleagues, with an educational jailene from [employer]. MARIELY-7 Assessment Billing MARIELY-7 Assessment Tool: MARIELY-7 Assessment 13739 Review of Systems Const Denies fatigue, Denies fever(s), Denies headache(s) and Denies weakness Eyes Denies change in vision ENT Denies dizziness, Denies headache(s), Denies nasal congestion, Denies nasal discharge and Denies sore throat Card Denies chest pain, Denies lightheadedness, Denies palpitations and Denies dyspnea Resp Denies chest congestion, Denies cough, Denies dyspnea and Denies wheezing GI Denies abdominal pain and Denies change in bowel habits Denies urinary frequency and Denies dysuria Musc Reports no additional complaints Skin/Breast Denies breast pain, Denies breast mass and Denies rash Neuro Denies dizziness, Denies headache(s) and Denies weakness Psych Reports no additional complaints Endo Denies fatigue, Denies polydipsia, Denies polyuria and Denies palpitations Yonny/Lymph Reports no additional complaints Aller/Immun Denies seasonal rhinorrhea and Denies wheezing Physical exam (Primary Care) Vital Signs: Last Vital Signs Pulse 97 11/13/22 12:41 BP 124/82 11/13/22 12:41 Pulse Ox 98 11/13/22 12:41 Oxygen Delivery Method Room Air 11/13/22 12:41 BMI result Body Mass Index 35.5 Tobacco/Smoking Status: Tobacco use Status Tobacco use date assessed 11/13/22 11/13/22 12:29 Patient Tobacco Use Status Never used Tobacco 11/13/22 12:29 e-Cigarette/Vaping Use Never Used 11/13/22 12:29 Depression Screening Interpretation: Negative Thrive Assessment: Date of Thrive Assessment Date Thrive assessed 11/13/22 11/13/22 12:46 Const Orientation/consciousness: patient oriented x3 HENMT Ears: hearing grossly normal bilaterally, external ears normal, TM's normal bilaterally and EAC's normal General nose exam: Normal external nose present Face and sinus: Yes face symmetric Mouth: Normal oral and palatal mucosa present and moist mucous membranes Eyes General: appearance normal, both eyes and all related structures Neck Neck: Yes full ROM Chest Breast/axilla palpation: normal palpation of the breasts Resp Auscultation: clear to auscultation bilaterally Cardio Other: S1-S2 present regular rate and rhythm GI Other: Normal bowel sounds, soft, nontender, no mass palpated General: Yes no CVA tenderness and Yes deferred (ff'd by OBGYN) Back/Spine/Pelvis Back: no CVA tenderness and No back tenderness Skin General skin exam: no rashes or lesions noted Neuro General: patient oriented x3, gait normal, moves all extremities, no focal motor deficits and CN's II-XI intact bilaterally Gait exam (Neuro): Normal gait present Extrem General: Yes full ROM, Yes no joint enlargement, Yes no clubbing, cyanosis or edema, Yes no pedal edema and Yes normal gait Psych Appearance: grossly normal and well kempt Mental Status: mental status grossly normal Speech and movement: Normal speech and movement present Affect: normal affect Attitude: cooperative Thought process: Normal thought process present Assessment and Plan Assessment & Plan (1) Annual visit for general adult medical examination with abnormal findings: Code(s): Z00.01 - Encounter for general adult medical examination with abnormal findings Plan: Will check appropriate labs. Recommended dental visit every 6 months and regular eye exams, at least every 2 years. Take adequate calcium in diet and vitamin-D 3 at 2000 IU per cap once a day, in addition to weight-bearing exercises to help maintain good muscle tone and weight control. Instructed to do self-breast exam, and recommended to get yearly mammogram, starting at age 40. Currently is followed by OBGYN for her routine Pap pelvic exam. Declines flu vaccine, has had COVID vaccinations in the past does not want to get booster, up-to-date with seen (2) Seizure disorder: Comment: ff'd by Dr. Garcia - not on any Sz meds at present Code(s): G40.909 - Epilepsy, unspecified, not intractable, without status epilepticus Plan: last seizure episode was 01/2022 (3) Chronic GERD: Code(s): K21.9 - Gastro-esophageal reflux disease without esophagitis Plan: currently on Pantoprazole (4) Endometriosis: Code(s): N80.9 - Endometriosis, unspecified Plan: on depo-provera , followed by Dr Gonsales (5) B12 deficiency: Code(s): E53.8 - Deficiency of other specified B group vitamins Plan: Will check vitamin B12 level (6) Vitamin D deficiency: Code(s): E55.9 - Vitamin D deficiency, unspecified Plan: Will check vitamin-D level (7) Generalized anxiety disorder: Code(s): F41.1 - Generalized anxiety disorder Plan: refill sent for lorazepam, take as needed only for acute anxiety attacks, continue escitalopram (8) Refused influenza vaccine: Code(s): Z28.21 - Immunization not carried out because of patient refusal Orders: Orders Vitamin B12 and Folate 11/13/22 G40.909 - Epilepsy, unspecified, not intractable, without status epilepticus, K21.9 - Gastro-esophageal reflux disease without esophagitis, F41.9 - Anxiety disorder, unspecified, N80.9 - Endometriosis, unspecified, Z00.01 - Encounter for general adult medical examination with abnormal findings, E53.8 - Deficiency of other specified B group vitamins, E55.9 - Vitamin D deficiency, unspecified Lipid Panel 11/13/22 G40.909 - Epilepsy, unspecified, not intractable, without status epilepticus, K21.9 - Gastro-esophageal reflux disease without esophagitis, F41.9 - Anxiety disorder, unspecified, N80.9 - Endometriosis, unspecified, Z00.01 - Encounter for general adult medical examination with abnormal findings, E53.8 - Deficiency of other specified B group vitamins, E55.9 - Vitamin D deficiency, unspecified Alanine Aminotransferase 11/13/22 G40.909 - Epilepsy, unspecified, not intractable, without status epilepticus, K21.9 - Gastro-esophageal reflux disease without esophagitis, F41.9 - Anxiety disorder, unspecified, N80.9 - Endometriosis, unspecified, Z00.01 - Encounter for general adult medical examination with abnormal findings, E53.8 - Deficiency of other specified B group vitamins, E55.9 - Vitamin D deficiency, unspecified Aspartate Amino Transferase 11/13/22 G40.909 - Epilepsy, unspecified, not intractable, without status epilepticus, K21.9 - Gastro-esophageal reflux disease without esophagitis, F41.9 - Anxiety disorder, unspecified, N80.9 - Endometriosis, unspecified, Z00.01 - Encounter for general adult medical examination with abnormal findings, E53.8 - Deficiency of other specified B group vitamins, E55.9 - Vitamin D deficiency, unspecified TSH reflex Free T4 11/13/22 G40.909 - Epilepsy, unspecified, not intractable, without status epilepticus, K21.9 - Gastro-esophageal reflux disease without esophagitis, F41.9 - Anxiety disorder, unspecified, N80.9 - Endometriosis, unspecified, Z00.01 - Encounter for general adult medical examination with abnormal findings, E53.8 - Deficiency of other specified B group vitamins, E55.9 - Vitamin D deficiency, unspecified Vitamin D 25-OH Total 11/13/22 G40.909 - Epilepsy, unspecified, not intractable, without status epilepticus, K21.9 - Gastro-esophageal reflux disease without esophagitis, F41.9 - Anxiety disorder, unspecified, N80.9 - Endometriosis, unspecified, Z00.01 - Encounter for general adult medical examination with abnormal findings, E53.8 - Deficiency of other specified B group vitamins, E55.9 - Vitamin D deficiency, unspecified Basic Metabolic Panel Fasting 11/13/22 G40.909 - Epilepsy, unspecified, not intractable, without status epilepticus, K21.9 - Gastro-esophageal reflux disease without esophagitis, F41.9 - Anxiety disorder, unspecified, N80.9 - Endometriosis, unspecified, Z00.01 - Encounter for general adult medical examination with abnormal findings, E53.8 - Deficiency of other specified B group vitamins, E55.9 - Vitamin D deficiency, unspecified Medications: Refilled lorazepam 0.5 mg PO DAILY PRN 14 tabs 0RF anxiety F41.1 - Generalized anxiety disorder Coding Level of Care Code Est Pt Prev Care [id number]) Diagnoses Annual visit for general adult medical examination with abnormal findings Z00.01 Seizure disorder G40.909 Chronic GERD K21.9 Endometriosis N80.9 B12 deficiency E53.8 Vitamin D deficiency E55.9 Generalized anxiety disorder F41.1 Refused influenza vaccine Z28.21 Additional Codes MARIELY-7 Assessment Billing - MARIELY-7 Assessment Tool: MARIELY-7 Assessment 69302 ([id number])
[2022-11-13 12:41] VITALS: BP 124/82; PULSE 97; O2SAT 98; BMI 35.5
== END 2022-11-13 13:39 | disposition home or self-care (01) ==
LOC: HO.HMGC 12:04
PROVIDERS: PCP Internal Medicine; Visit Provider Internal Medicine
DX: Z00.00 Encounter for general adult medical examination without abnormal findings (principal); G40.909 Epilepsy, unspecified, not intractable, without status epilepticus; K21.9 Gastro-esophageal reflux disease without esophagitis; N80.9 Endometriosis, unspecified; E53.8 Deficiency of other specified B group vitamins; E55.9 Vitamin D deficiency, unspecified; F41.1 Generalized anxiety disorder; Z28.21 Immunization not carried out because of patient refusal
CPT/HCPCS: 99499

== ENCOUNTER 2023-01-30 14:41 | Outpatient (REF) | payer OTHER, SELFPAY ==
[2023-01-31 10:55] LABS: BV Int Neg Control Negative (Negative); BV Int Pos Control Positive (Positive)
[2023-01-31 11:01] LABS: CT PCR NOT DETECTED (Not Detect.); NG PCR NOT DETECTED (Not Detect.)
== END 2023-01-30 14:42 | disposition home or self-care (01) ==
LOC: HO.LNP 14:41
PROVIDERS: PCP Internal Medicine; Visit Provider Obstetrics & Gynecology
DX: Z01.419 Encounter for gynecological examination (general) (routine) without abnormal findings (principal); N89.8 Other specified noninflammatory disorders of vagina; B37.31 Acute candidiasis of vulva and vagina; R10.2 Pelvic and perineal pain; Z32.02 Encounter for pregnancy test, result negative
CPT/HCPCS: 0353U; 81025; 87480; 87510; 87660

== ENCOUNTER 2023-02-14 11:18 | Outpatient (REF) | payer OTHER, SELFPAY ==
--- NOTE | ~2023-02-14 | US_ITS ---
EXAM: Pelvic Ultrasound CLINICAL INDICATION: Pelvic and perineal pain. COMPARISON: Pelvic ultrasound 03/12/2022 TECHNIQUE: The pelvis was evaluated using transabdominal and transvaginal imaging.. FINDINGS: The uterus measures 8.7 x 3.1 x 4.9 cm in longitudinal by AP by transverse dimension. The endometrial stripe is not thickened and measures 0.6 cm. A small amount of fluid is noted within the cervical canal. The left ovary measures approximately 2.6 x 1.7 x 1.4 cm and is normal. The right ovary measures approximately 5.8 x 3.7 x 4.7 cm and contains a few cysts, largest measuring 4.4 cm (previously 4.9 cm). A 5 mm calcification is also noted either within or abutting one of the right ovarian cysts. There is no free fluid in the pelvis. US/US pelvic and transvaginal IMPRESSION: 1. Normal thickness endometrial stripe. 2. A few right ovarian cysts are noted, largest measuring 4.4 cm (previously 4.9 cm). A 5 mm calcification is also noted either within or abutting one of the right ovarian cysts.
[2023-02-14 12:51] LABS: Alanine Aminotransferase 108 U/L (0-31); Anion Gap 8 (12-20); Aspartate Amino Transferase 81 U/L (5-31); Blood Urea Nitrogen 9 mg/dL (9-16); Calcium 9.1 mg/dL (8.4-10.2); Carbon Dioxide 26 mmol/L (22-29); Chloride 105 mmol/L (96-108); Cholesterol 231 mg/dL; Estimated Glomerular Filt Rate > 60; Glucose Fasting 82 mg/dL (60-99); HDL Cholesterol 50 mg/dL; LDL Cholesterol Calculated 152 mg/dl; Potassium 4.4 mmol/L (3.3-5.1); Sodium 135 mmol/L (135-145); Triglycerides 146 mg/dL
[2023-02-14 13:21] LABS: Folate 10.7 ng/mL (> or = 4.0); TSH reflex Free T4 1.03 uIU/mL (0.32-4.0); Vitamin B12 1086 pg/mL (200-900); Vitamin D 25-OH Total 43.3 ng/mL (>30)
== END 2023-02-14 11:19 | disposition home or self-care (01) ==
LOC: HO.US 11:18
PROVIDERS: PCP Internal Medicine; Visit Provider Obstetrics & Gynecology
DX: Z00.01 Encounter for general adult medical examination with abnormal findings (principal); R10.2 Pelvic and perineal pain; G40.909 Epilepsy, unspecified, not intractable, without status epilepticus; K21.9 Gastro-esophageal reflux disease without esophagitis; F41.9 Anxiety disorder, unspecified; N80.9 Endometriosis, unspecified; E53.8 Deficiency of other specified B group vitamins; E55.9 Vitamin D deficiency, unspecified
CPT/HCPCS: 36415; 76830; 76856; 80048; 80061; 82306; 82607; 82746; 84443; 84450; 84460

== ENCOUNTER → 2023-03-13 07:47 | Outpatient (BNVA) | payer OTHER, SELFPAY | PROVIDERS: PCP Internal Medicine; Visit Provider Obstetrics & Gynecology ==

== ENCOUNTER 2024-01-15 15:02 | Outpatient (AMB) | payer OTHER, SELFPAY ==
[2024-01-15 15:19] VITALS: BP 112/74; PULSE 84; O2SAT 99; BMI 34.8
--- NOTE | 2024-01-15 15:19 | MHC.PC.OV ---
Vital Signs 01/15/24 15:19 Height 5 ft Weight 178 lb BMI 34.8 BP 112/74 Blood Pressure Location Lt brachial Position Sitting Pulse 84 Pulse Source Pulse Oximeter Pulse Oximetry (%) 99 Oxygen Delivery Method Room Air Intake Visit Reasons: Physical exam Is last menstrual period known: Yes Last menstrual period: 01/08/24 Allergies amoxicillin [AMOXICILLIN] Allergy (Intermediate, Verified 01/15/24 15:53) rash Penicillins [PENICILLINS] Allergy (Unknown, Verified 01/15/24 15:53) rash as above Medication List - Last Reconciled 01/15/24 by Willa Butler MD escitalopram oxalate (Lexapro) 5 mg PO DAILY lorazepam 0.5 mg PO DAILY PRN pantoprazole 40 mg PO DAILY Tobacco use date assessed: 01/15/24 Dental Screening Dental Screen Date: 01/15/24 Did you have a dental visit in the last 12 months?: Yes Did you have a dental problem in the last 6 months where you did not have access to dental care?: No Was dental information given to patient?: Patient has dentist HPI Encounter for physical examination HPI Details 28-year-old lady here today for physical exam. She has history of seizure disorder, has been seizure-free now for several years currently not on any medication. Has generalized anxiety disorder currently stable and controlled on escitalopram and takes lorazepam as needed for acute anxiety attacks. Has chronic GERD currently on pantoprazole 40 mg daily . She is currently being followed by Dr. Gonsales for her ovarian cyst and for her routine Pap and pelvic exam, which is currently up-to-date. She was noted to have elevated liver enzymes on last blood draw in 2022, denies any abdominal pain, no nausea vomiting reported. [facility], LAT[facility] Medical History (Updated 01/19/24 @ 02:38 by Willa Butler MD) Elevated liver transaminase level History of non anemic vitamin B12 deficiency Refused influenza vaccine Vitamin D deficiency B12 deficiency Obesity (BMI 30.0-34.9) Seizure disorder Chronic GERD Endometriosis Breakthrough bleeding on OCPs History of COVID-19 COVID-19 Anxiety Surgical History History of esophagogastroduodenoscopy (EGD) [place] teeth removed Hx of tonsillectomy Family History Father Diabetes mellitus Mother HTN (hypertension) Arrhythmia Depression Hx of cholecystectomy Maternal Grandmother Cancer Uterine cancer Maternal Grandfather CVD (cardiovascular disease) History of heart attack Paternal Grandmother Cancer Paternal Grandfather Diabetes mellitus Paternal Aunt Breast cancer History of open heart surgery Paternal Uncle Diabetes mellitus Brother Substance use disorder Social History Housing: House Alcohol intake: current Alcohol intake frequency: holidays/special occasions only Patient Tobacco Use Status: Never used Tobacco e-Cigarette/Vaping Use: Never Used Second Hand Smoke Exposure: No service: No Current occupational status: employed 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 1. Little interest or pleasure in doing things: not at all 2. Feeling down, depressed, or hopeless: not at all 3. Trouble falling or staying asleep, or sleeping too much: not at all 4. Feeling tired or having little energy: not at all 5. Poor appetite or overeating: not at all 6. Feeling bad about yourself - or that you are a failure or have let yourself or your family down: not at all 7. Trouble concentrating on things, such as reading the newspaper or watching television: not at all 8. Moving or speaking so slowly that other people could have noticed. Or the opposite - being so fidgety or restless that you have been moving around a lot more than usual: not at all 9. Thoughts that you would be better off or of hurting yourself in some way: not at all Total score: 0 Depression Screening Interpretation: Negative Depression Screening Done: Yes 91304 - PHQ-9 Billing: Yes Source: Developed by Drs. Nick Rodrigues, Korina Ott, Jeremy Lew and colleagues, with an educational jailene from [employer]. Thrive Questionnaire Date Thrive assessed: 01/15/24 I am a: Patient What is your living situation today?: I have a steady place to live Within the past 12 months, did the food you bought not last and you didn't have the money to get more?: Never true Within the past 12 months, did you worry whether your food would run out before you got money to buy more?: Never true Do you have trouble paying for medicines?: No Do you have trouble paying your heating and electricity bill?: No Do you have trouble taking care of your child, family member or friend?: No Do you have trouble with day-to-day activities such as bathing, preparing meals, shopping, managing finances, etc.?: No Are you currently unemployed and looking for a job?: No Are you interested in more education?: No THRIVE Score: 0 AUDIT C Alcohol Use Questionnaire (AUDIT-C) 1. How often do you have a drink containing alcohol?: 2-3 times a week 2. How many drinks containing alcohol do you have on a typical day when you are drinking?: 1 or 2 3. How often do you have six or more drinks on one occasion?: Never Total Score: 3 Score Reviewed/Action Taken: Yes MARIELY-7 AMB Questionnaire MARIELY-7 Date MARIELY - 7 assessed: 01/15/24 Feeling nervous, anxious, or on edge: 0 = Not at all Not being able to stop or control worryin = Not at all Worrying too much about different things: 1 = Several days Trouble relaxin = Not at all Being so restless that it is hard to sit still: 0 = Not at all Becoming easily annoyed or irritable: 0 = Not at all Feeling afraid as if something awful might happen: 0 = Not at all Total MARIELY-7 score (0-4 normal; 5-9 mild; 10-14 moderate; 15-21 severe): 1 Source: Developed by Drs. Nick Rodrigues, Korina Ott, Jeremy Lew and colleagues, with an educational jailene from [employer]. MARIELY-7 Assessment Billing MARIELY-7 Assessment Tool: MARIELY-7 Assessment 42996 Review of Systems Const Denies fever(s), Denies headache(s), Denies weakness and Reports weight loss Eyes Denies change in vision ENT Denies dizziness, Denies headache(s), Denies nasal congestion, Denies nasal discharge and Denies sore throat Card Denies chest pain, Denies lightheadedness, Denies palpitations and Denies dyspnea Resp Denies chest congestion, Denies cough, Denies dyspnea and Denies wheezing GI Denies abdominal pain and Denies change in bowel habits Denies urinary frequency and Denies dysuria Musc Reports no additional complaints Skin/Breast Denies breast pain, Denies breast mass and Denies rash Neuro Denies dizziness, Denies headache(s) and Denies weakness Psych Reports no additional complaints Endo Denies polydipsia, Denies polyuria and Denies palpitations Yonny/Lymph Reports no additional complaints Aller/Immun Denies seasonal rhinorrhea and Denies wheezing Physical exam (Primary Care) Vital Signs: Last Vital Signs Pulse 84 01/15/24 15:19 BP 112/74 01/15/24 15:19 Pulse Ox 99 01/15/24 15:19 Oxygen Delivery Method Room Air 01/15/24 15:19 BMI result Body Mass Index 34.8 Tobacco/Smoking Status: Tobacco use Status Tobacco use date assessed 01/15/24 01/15/24 15:23 Patient Tobacco Use Status Never used Tobacco 01/15/24 15:23 e-Cigarette/Vaping Use Never Used 01/15/24 15:23 Depression Screening Interpretation: Negative Thrive Assessment: Date of Thrive Assessment Date Thrive assessed 11/13/22 01/15/24 15:23 Const Orientation/consciousness: patient oriented x3 HENMT Ears: hearing grossly normal bilaterally, external ears normal, TM's normal bilaterally and EAC's normal General nose exam: Normal external nose present Face and sinus: Yes face symmetric Mouth: Normal oral and palatal mucosa present and moist mucous membranes Eyes General: appearance normal, both eyes and all related structures Neck Neck: Yes full ROM, Yes no lymphadenopathy and Yes supple Chest Breast/axilla palpation: normal palpation of the breasts Resp Auscultation: clear to auscultation bilaterally Cardio Other: S1-S2 present regular rate and rhythm GI Other: Normal bowel sounds, soft, nontender, no mass palpated General: Yes no CVA tenderness and Yes deferred (ff'd by OBGYN) Back/Spine/Pelvis Back: no CVA tenderness and No back tenderness Skin General skin exam: no rashes or lesions noted Neuro General: patient oriented x3, gait normal, moves all extremities, no focal motor deficits and CN's II-XI intact bilaterally Gait exam (Neuro): Normal gait present Extrem General: Yes full ROM, Yes no joint enlargement, Yes no clubbing, cyanosis or edema, Yes no pedal edema and Yes normal gait Psych Appearance: grossly normal and well kempt Mental Status: mental status grossly normal Speech and movement: Normal speech and movement present Affect: normal affect Attitude: cooperative Thought process: Normal thought process present Assessment and Plan Assessment & Plan (1) Annual visit for general adult medical examination with abnormal findings: Code(s): Z00.01 - Encounter for general adult medical examination with abnormal findings Plan: Will check appropriate labs. Continued regular dental visit every 6 months and regular eye exams, at least every 2 years. Take adequate calcium in diet and vitamin-D 3 at 2000 IU per cap once a day, in addition to weight-bearing exercises to help maintain good muscle tone and weight control. Instructed to do self-breast exam, and recommended to get yearly mammogram, starting at age 40. Last Pap smear was in 2020 with negative findings, has an appointment later this month with Dr. Gonsales for her routine Pap and pelvic exam. . She has had COVID vaccines in the past but does not want to get a booster, declines flu vaccine (2) Chronic GERD: Code(s): K21.9 - Gastro-esophageal reflux disease without esophagitis Plan: Stable and controlled on pantoprazole 40 mg daily (3) Elevated liver transaminase level: Code(s): R74.01 - Elevation of levels of liver transaminase levels Plan: Comprehensive metabolic panel ordered , refer to GI Clinic ordered (4) Generalized anxiety disorder: Code(s): F41.1 - Generalized anxiety disorder Plan: Stable and controlled on escitalopram 5 mg daily, will continue and has lorazepam to take for acute anxiety attacks which has been occurring infrequently. (5) Seizure disorder: Comment: ff'd by Dr. Garcia - not on any Sz meds at present Code(s): G40.909 - Epilepsy, unspecified, not intractable, without status epilepticus Plan: Currently not on any medication, has been seizure-free now for several years (6) Obesity (BMI 30.0-34.9): Code(s): E66.9 - Obesity, unspecified Plan: Continue with weight loss through diet and exercise (7) Refused influenza vaccine: Code(s): Z28.21 - Immunization not carried out because of patient refusal (8) Complex ovarian cyst: Comment: Resolved Code(s): N83.299 - Other ovarian cyst, unspecified side Plan: Currently followed by [facility] Orders: Orders Comprehensive [place]. Panel Fast 01/15/24 E66.9 - Obesity, unspecified, F41.1 - Generalized anxiety disorder, G40.909 - Epilepsy, unspecified, not intractable, without status epilepticus, K21.9 - Gastro-esophageal reflux disease without esophagitis, R74.01 - Elevation of levels of liver transaminase levels, Z00.01 - Encounter for general adult medical examination with abnormal findings, Z86.39 - Personal history of other endocrine, nutritional and metabolic disease Lipid Panel 01/15/24 E66.9 - Obesity, unspecified, F41.1 - Generalized anxiety disorder, G40.909 - Epilepsy, unspecified, not intractable, without status epilepticus, K21.9 - Gastro-esophageal reflux disease without esophagitis, R74.01 - Elevation of levels of liver transaminase levels, Z00.01 - Encounter for general adult medical examination with abnormal findings, Z86.39 - Personal history of other endocrine, nutritional and metabolic disease Vitamin D 25-OH Total 01/15/24 E66.9 - Obesity, unspecified, F41.1 - Generalized anxiety disorder, G40.909 - Epilepsy, unspecified, not intractable, without status epilepticus, K21.9 - Gastro-esophageal reflux disease without esophagitis, R74.01 - Elevation of levels of liver transaminase levels, Z00.01 - Encounter for general adult medical examination with abnormal findings, Z86.39 - Personal history of other endocrine, nutritional and metabolic disease Vitamin B12 and Folate 01/15/24 E66.9 - Obesity, unspecified, F41.1 - Generalized anxiety disorder, G40.909 - Epilepsy, unspecified, not intractable, without status epilepticus, K21.9 - Gastro-esophageal reflux disease without esophagitis, R74.01 - Elevation of levels of liver transaminase levels, Z00.01 - Encounter for general adult medical examination with abnormal findings, Z86.39 - Personal history of other endocrine, nutritional and metabolic disease Referrals Gastroenterology Referral K21.9 - Gastro-esophageal reflux disease without esophagitis, R74.01 - Elevation of levels of liver transaminase levels Medications: Refilled lorazepam 0.5 mg PO DAILY PRN 14 tabs 0RF anxiety F41.1 - Generalized anxiety disorder Coding Level of Care Code Est Pt Prev Care 18-39y(21477) Diagnoses Annual visit for general adult medical examination with abnormal findings Z00.01 Chronic GERD K21.9 Elevated liver transaminase level R74.01 Generalized anxiety disorder F41.1 Seizure disorder G40.909 Obesity (BMI 30.0-34.9) E66.9 Refused influenza vaccine Z28.21 Complex ovarian cyst N83.299 Additional Codes MARIELY-7 Assessment Billing - MARIELY-7 Assessment Tool: MARIELY-7 Assessment 38822 ([id number])
== END 2024-01-15 16:17 | disposition home or self-care (01) ==
PROVIDERS: PCP Internal Medicine; Visit Provider Internal Medicine
DX: Z00.00 Encounter for general adult medical examination without abnormal findings (principal); G40.909 Epilepsy, unspecified, not intractable, without status epilepticus; K21.9 Gastro-esophageal reflux disease without esophagitis; R74.01 Elevation of levels of liver transaminase levels; F41.1 Generalized anxiety disorder; E66.9 Obesity, unspecified; Z28.21 Immunization not carried out because of patient refusal; N83.299 Other ovarian cyst, unspecified side; Z68.34 Body mass index [BMI] 34.0-34.9, adult
CPT/HCPCS: 99395

== ENCOUNTER 2024-06-01 07:37 | Outpatient (REF) | payer OTHER, SELFPAY ==
[2024-06-01 12:04] LABS: Alanine Aminotransferase 7 U/L (0-31); Albumin Level 3.9 g/dL (3.5-5.0); Alkaline Phosphatase 54 U/L (39-117); Anion Gap 10 (12-20); Aspartate Amino Transferase 12 U/L (5-31); Blood Urea Nitrogen 8 mg/dL (9-16); Calcium 8.5 mg/dL (8.4-10.2); Carbon Dioxide 22 mmol/L (22-29); Chloride 112 mmol/L (96-108); Cholesterol 199 mg/dL (<200); Estimated Glomerular Filt Rate > 60; Glucose Fasting 94 mg/dL (60-99); HDL Cholesterol 42 mg/dL (>40); LDL Cholesterol Calculated 127 mg/dL (<100); Potassium 3.7 mmol/L (3.3-5.1); Sodium 140 mmol/L (135-145); Total Protein 6.2 g/dL (6.5-8.0); Triglycerides 154 mg/dL (<150)
[2024-06-01 12:19] LABS: Bilirubin Total 0.6 mg/dL (0.0-1.0)
[2024-06-01 12:25] LABS: Vitamin D 25-OH Total 40.2 ng/mL (>30)
[2024-06-01 12:42] LABS: Vitamin B12 290 pg/mL (200-900)
== END 2024-06-01 07:38 | disposition home or self-care (01) ==
LOC: HO.WFDLDS 07:37
PROVIDERS: Visit Provider Internal Medicine
DX: Z00.01 Encounter for general adult medical examination with abnormal findings (principal); R74.01 Elevation of levels of liver transaminase levels; E66.9 Obesity, unspecified; K21.9 Gastro-esophageal reflux disease without esophagitis; G40.909 Epilepsy, unspecified, not intractable, without status epilepticus; F41.1 Generalized anxiety disorder; Z86.39 Personal history of other endocrine, nutritional and metabolic disease
CPT/HCPCS: 36415; 80053; 80061; 82306; 82607; 82746

== ENCOUNTER 2024-06-02 15:29 | Outpatient (AMB) | payer OTHER, SELFPAY ==
--- NOTE | 2024-06-02 15:33 | MHC.PC.OV ---
Vital Signs 06/02/24 15:36 Height 5 ft Weight 167 lb 2 oz BMI 32.6 BP 124/68 Blood Pressure Location Lt brachial Position Sitting Respiration 14 Pulse 72 Pulse Source Pulse Oximeter Temp 99.1 F Temp Source Oral Pulse Oximetry (%) 100 Oxygen Delivery Method Room Air Intake Visit Reasons: Trans. from AE was a former KO patient Intake Note: follow up Allergies amoxicillin [AMOXICILLIN] Allergy (Intermediate, Verified 06/02/24 16:11) rash Penicillins [PENICILLINS] Allergy (Unknown, Verified 06/02/24 16:11) rash as above Medication List - Last Reconciled 06/02/24 by Carmita Philip, BASKET TURNER- escitalopram oxalate (Lexapro) 5 mg PO DAILY lorazepam 0.5 mg PO DAILY PRN pantoprazole 40 mg PO DAILY Tobacco use date assessed: 01/15/24 Dental Screening Dental Screen Date: 06/02/24 Did you have a dental visit in the last 12 months?: Yes Did you have a dental problem in the last 6 months where you did not have access to dental care?: No Was dental information given to patient?: Patient has dentist HPI HPI Comments History of Present Illness Details 29 y/o F with obesity, complex ovarian cyst, GERD, Seizure disorder remote (last 2021, no longer on meds; was on Keppra), 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 Old records reviewed. I had the pleasure of being her PCP a few years ago. Sz: 2021 stressed, didnt eat, caffeine while on Girls Trip. Did see Neuro after this. Hospital visit and Neuro note reviewed. Reports the antileptics had profound negative mood effects. Tried several. At this time, she is off meds. Tries to limit stress. Limit caffeine and no prolonged fasting. Longstanding R ovarian cyst, sx wax and wane w/o treatment. Was on OCP in the past, stopped. Since coming off, the cyst have decreased, the uterine pain is significantly less. Still comes but better. Getting regular periods. LMP 05/08/24. Has heavy bleeding at times of increased ovarian pain but otherwise cycles are regular. 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 Using PPI for chronic GERD. Not currently active with GI but did have EGD in 2021. Mood stable on current meds; no recent use of ativan. Has palps some times. Self limiting. Reviewed w/ her today: Labs 06/01/24 Normal Vit D, low normal B12, normal Lytes, renal function, LFT normal, boderline high chol albeit improved, normal TSH Plan: Recommend taking daily MVI to increase b12 and cont normal vit d levels. refer to [facility] for PACKAGING LINE ATTENDANT care cont all meds RTO in 6 mo for routine fu, sooner PRN This note is constructed using voice recognition software. While every effort has been made to ensure accuracy in floor steward/stewardess, still errors may have been included Sometimes, these errors may affect the content or meaning of the given sentence . Total time spent caring for the patient today was 30 minutes. This includes time spent before the visit reviewing the chart, time spent during the visit, and time spent after the visit on documentation [facility] Medical History (Updated 06/02/24 @ 16:27 by Carmita Philip, [facility]) Vitamin D deficiency B12 deficiency Elevated liver transaminase level History of non anemic vitamin B12 deficiency Refused influenza vaccine Obesity (BMI 30.0-34.9) Seizure disorder Chronic GERD Endometriosis Breakthrough bleeding on OCPs History of COVID-19 COVID-19 Anxiety Surgical History History of esophagogastroduodenoscopy (EGD) [place] teeth removed Hx of tonsillectomy Family History Father Diabetes mellitus Mother HTN (hypertension) Arrhythmia Depression Hx of cholecystectomy Maternal Grandmother Cancer Uterine cancer Maternal Grandfather CVD (cardiovascular disease) History of heart attack Paternal Grandmother Cancer Paternal Grandfather Diabetes mellitus Paternal Aunt Breast cancer History of open heart surgery Paternal Uncle Diabetes mellitus Brother Substance use disorder Social History Housing: House Alcohol intake: current Alcohol intake frequency: holidays/special occasions only Patient Tobacco Use Status: Never used Tobacco e-Cigarette/Vaping Use: Never Used Second Hand Smoke Exposure: No service: No Current occupational status: employed 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 1. Little interest or pleasure in doing things: not at all 2. Feeling down, depressed, or hopeless: not at all 3. Trouble falling or staying asleep, or sleeping too much: not at all 4. Feeling tired or having little energy: several days 5. Poor appetite or overeating: not at all 6. Feeling bad about yourself - or that you are a failure or have let yourself or your family down: not at all 7. Trouble concentrating on things, such as reading the newspaper or watching television: several days 8. Moving or speaking so slowly that other people could have noticed. Or the opposite - being so fidgety or restless that you have been moving around a lot more than usual: not at all 9. Thoughts that you would be better off or of hurting yourself in some way: not at all Total score: 2 43885 - PHQ-9 Billing: Yes Source: Developed by Drs. Nick Rodrigues, Korina Ott, Jeremy Lew and colleagues, with an educational jailene from [employer]. Thrive Questionnaire Date Thrive assessed: 01/15/24 MARIELY-7 AMB Questionnaire MARIELY-7 Date MARIELY - 7 assessed: 06/02/24 Feeling nervous, anxious, or on edge: 2 = More than half the days Not being able to stop or control worryin = Not at all Worrying too much about different things: 1 = Several days Trouble relaxin = Several days Being so restless that it is hard to sit still: 1 = Several days Becoming easily annoyed or irritable: 2 = More than half the days Feeling afraid as if something awful might happen: 0 = Not at all Total MARIELY-7 score (0-4 normal; 5-9 mild; 10-14 moderate; 15-21 severe): 7 Source: Developed by Drs. Nick Rodrigues, Korina Ott, Jeremy Lew and colleagues, with an educational jailene from [employer]. MARIELY-7 Assessment Billing MARIELY-7 Assessment Tool: MARIELY-7 Assessment 05588 Physical exam (Primary Care) Vital Signs: Last Vital Signs Temp 99.1 F 06/02/24 15:36 Pulse 72 06/02/24 15:36 Resp 14 06/02/24 15:36 BP 124/68 06/02/24 15:36 Pulse Ox 100 06/02/24 15:36 Oxygen Delivery Method Room Air 06/02/24 15:36 BMI result Body Mass Index 32.6 Tobacco/Smoking Status: Tobacco use Status Tobacco use date assessed 01/15/24 06/02/24 15:35 Patient Tobacco Use Status Never used Tobacco 06/02/24 15:35 e-Cigarette/Vaping Use Never Used 06/02/24 15:35 PHQ-9: PHQ-9 Score PHQ-9: Total score 2 06/02/24 15:40 Thrive Assessment: Date of Thrive Assessment Date Thrive assessed 01/15/24 06/02/24 15:35 Assessment and Plan Assessment & Plan (1) Endometriosis: Code(s): N80.9 - Endometriosis, unspecified (2) Complex ovarian cyst: Comment: right Code(s): N83.299 - Other ovarian cyst, unspecified side (3) Chronic GERD: Code(s): K21.9 - Gastro-esophageal reflux disease without esophagitis (4) Seizure disorder: Comment: ff'd by Dr. Garcia in past - not on any Sz meds at present Code(s): G40.909 - Epilepsy, unspecified, not intractable, without status epilepticus (5) Generalized anxiety disorder: Code(s): F41.1 - Generalized anxiety disorder (6) B12 deficiency: Code(s): E53.8 - Deficiency of other specified B group vitamins (7) Vitamin D deficiency: Code(s): E55.9 - Vitamin D deficiency, unspecified Orders: Referrals RIFFLER TENDER Referral N80.9 - Endometriosis, unspecified, N83.299 - Other ovarian cyst, unspecified side, Z01.419 - Encounter for gynecological examination (general) (routine) without abnormal findings Medications: Refilled escitalopram oxalate (Lexapro) 5 mg PO DAILY 90 tabs 1RF pantoprazole 40 mg PO DAILY 90 tabs 3RF Patient Instructions: Walk-In Care (Urgent Care): We Make it Easy Walk-in for urgent medical issues such as: ? Seasonal Allergies ? Insect Bites ? Cough ? Diarrhea ? Acute Asthma Attacks ? Back, Knee or Joint Pain ? Ear Infection ? Fever without a Rash ? Headaches ? Nausea ? [place] Eye, Rash or Skin Irritation ? Sore Throat ? Sports Physicals ? Vomiting Most insurances are accepted. Patients do not need to be part of the [facility] to seek care at the walk-in clinic. Locations [facility] [place] [address] ? [phone] [facility] in [place] provides services to ages 18 and over. Open Friday-Friday: 8 a.m. to 5 p.m. and Friday: 9 a.m. to 3 p.m.* *Hours may vary due to staffing availability. To confirm Walk-In Care hours in [place], please call [phone]. [address] [place] [address] ? [phone] [facility] in [place] provides services to ages 12 and over. Open Friday-Friday: 8 a.m. to 5 p.m. Hours may vary due to staffing availability. To confirm Walk-In Care hours in [place], please call [phone]. LABORATORY SERVICES: [facility] Lab ? Primary Location [address] [place] [address] Friday through Friday 6:00 AM ? 5:00 PM Friday 7:00 AM ? 11:00 AM* [phone] The [facility] Lab is centrally located near the front entrance of the Medical Center for easy outpatient access. Convenient parking is provided for outpatients. *Hours may vary due to staffing availability. To confirm Laboratory hours for any location, please call [phone]. Offsite Location For your convenience, we offer offsite laboratory draw stations at the following locations: [address] [place] [address] [address], [address], [place] Friday through Friday 7:30 AM ? 1:00 PM* [phone] *Hours may vary due to staffing availability. To confirm Laboratory hours for any location, please call [phone]. [place] ? [facility] [address] [facility] Friday through Friday 6:00 AM ? 3:30 PM* Friday 6:30 AM ? 3 PM* [phone] *Hours may vary due to staffing availability. To confirm Laboratory hours for any location, please call [phone] [place] [address] Friday through Friday 7:30 AM ? 4:00 PM* [phone] *Hours may vary due to staffing availability. To confirm Laboratory hours for any location, please call [phone] [place] [address] Friday through 9:00 AM ? 4:00 PM* *Hours may vary due to staffing availability. To confirm Laboratory hours for any location, please call [phone]. Appointments are not necessary. Walk-ins are welcome. Like all the departments throughout the [facility], our Lab undergoes frequent reviews to ensure the quality and accuracy of test results, and our staff takes special pride in its status as a nationally accredited facility. Patient Portal: ONE PATIENT. ONE RECORD. BETTER CARE. [facility] has a fully integrated, cutting-edge mobile electronic health information system that has revolutionized the way we care for our patients and manage our organization. This system improves communication and coordination enabling us to provide safe, higher-quality care, and an overall positive experience for staff and patients. Our first priority, as always, is to deliver the highest quality care possible. The system is running in the background supporting that priority. This portal is for all [facility] and [facility] services and practices. If you are experiencing any technical difficulties with enrolling or logging into the Patient Portal please complete the [facility] Patient Portal Technical Support Form. [facility] now offers a new secure on-line interactive tool for patients to review their health information ? Patient Portal. This interactive web portal will enable patients and their families to take an active role in their care by providing easy, secure access to their health information via the internet. The Patient Portal provides patients with instant access to their health information, including laboratory results, medications, allergies, demographic information, visit history, and more. In addition to managing their own care, parents and health care proxies with authorized consent will appreciate the ability to access the records of those individuals for whom they provide care. Please note: if you wish to gain access (Proxy) to another patient?s portal, you will be required to come to the Medical Records Department in person at [facility]. Both the patient giving proxy access and the proxy will need to provide photo identification and complete the appropriate authorization. The Patient Portal also allows track their appointments online. The [facility] Patient Portal also saves patients time by allowing them to submit updates to their demographic and contact information prior to their visits. Portal email notifications will also alert patients to any new activity on their portal, such as test results and new appointments. In order to initially enroll in the [facility] Patient Portal, you will need to enter some required information including the following: ? your [facility] Medical Record number ? your personal home email address ? name ? date of Please note: In order to enroll in the [facility] Patient Portal, we need to have your email address on file in your electronic medical record. The email address needs to be specific for one person (yourself) in order for your Portal enrollment to be successful. You can update your email address in person with our Registration staff when you are registering for a hospital visit. Otherwise, you will need to come to the Health Information Management (Medical Records) Department at [facility]. We are open from Friday ? Friday from 7:30 a.m. ? 4:30 p.m. You will be required to present a photo id. Once you have successfully enrolled in the Patient Portal, you will receive a one-time user id and password for the Portal, sent to your email address. This will allow you to log into the Patient Portal within 99 hrs and reset your own logon id and password, and define personal security questions. Once your permanent login and password have been set, you can log into the [facility] Patient Portal at any time via the blue button above or from the Portal Logon button on any page of the [facility] website. [facility] and [facility] encourage all of our patients to enroll in Patient Portal as it presents a valuable opportunity for patients and their families to actively participate in their care and stay healthy Welcome to [facility]. We look forward to working with you. Coding Level of Care Code Est Pt Level 4 (92252) Complex EM visit Add On G2211 Diagnoses Endometriosis N80.9 Complex ovarian cyst N83.299 Chronic GERD K21.9 Seizure disorder G40.909 Generalized anxiety disorder F41.1 B12 deficiency E53.8 Vitamin D deficiency E55.9 Additional Codes MARIELY-7 Assessment Billing - MARIELY-7 Assessment Tool: MARIELY-7 Assessment 11507 ([id number])
[2024-06-02 15:36] VITALS: BP 124/68; PULSE 72; RESP 14; TEMP 37.3; O2SAT 100; BMI 32.6
== END 2024-06-02 16:26 | disposition home or self-care (01) ==
PROVIDERS: PCP Internal Medicine; Visit Provider Nurse Practitioner Family
DX: N80.9 Endometriosis, unspecified (principal); N83.299 Other ovarian cyst, unspecified side; K21.9 Gastro-esophageal reflux disease without esophagitis; G40.909 Epilepsy, unspecified, not intractable, without status epilepticus; F41.1 Generalized anxiety disorder; E53.8 Deficiency of other specified B group vitamins; E55.9 Vitamin D deficiency, unspecified

== ENCOUNTER → 2024-06-02 15:29 | Outpatient (BNVA) | payer OTHER, SELFPAY | PROVIDERS: PCP Internal Medicine; Visit Provider Nurse Practitioner Family | DX: N80.9 Endometriosis, unspecified (principal); N83.299 Other ovarian cyst, unspecified side; K21.9 Gastro-esophageal reflux disease without esophagitis; G40.909 Epilepsy, unspecified, not intractable, without status epilepticus; F41.1 Generalized anxiety disorder; E53.8 Deficiency of other specified B group vitamins; E55.9 Vitamin D deficiency, unspecified | CPT/HCPCS: 96127; 99212 ==

== ENCOUNTER 2024-07-16 10:00 | Outpatient (AMB) | payer OTHER, SELFPAY ==
--- NOTE | 2024-07-16 10:08 | AM.OFFWIN_ITS ---
Intake Vital Signs 07/16/24 10:13 Height 5 ft Weight 156 lb 2 oz BMI 30.5 BP 110/69 Blood Pressure Location Rt brachial Position Sitting Respiration 13 Pulse 76 Pulse Source Pulse Oximeter Pulse Oximetry (%) 95 Oxygen Delivery Method Room Air Intake Visit Reasons: est/ sinus cold Intake Note: Patient complaining of congested, both earache, body aches, and coughing x1 week Patient Tobacco Use Status: Never used Tobacco Nurse Staff Community [facility] Required: No Allergies amoxicillin [AMOXICILLIN] Allergy (Intermediate, Verified 07/16/24 10:19) rash Penicillins [PENICILLINS] Allergy (Unknown, Verified 07/16/24 10:19) rash as above Medication List - Last Reconciled 07/16/24 by Carmita Philip, MUSIC AGENT-BC escitalopram oxalate (Lexapro) 5 mg PO DAILY lorazepam 0.5 mg PO DAILY PRN pantoprazole 40 mg PO DAILY Do you need a note to return to daycare/school/sports/work: No HPI HPI Comments History of Present Illness Details 29 y/o F with obesity, complex ovarian c yst, GERD, Seizure disorder remote (last 2021, no longer on meds; was on Keppra), 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 This past Friday into Friday she started to feel worse. She did miss work yesterday and today. Has been using Tylenol cold and flu with very short-lived relief. [place] febrile and had sweats Fri/ Bilat ear pain started last night No sore throat , + PND Lots of sinus congestion and drainage Cough, productive, for about 3 weeks, feels mildly SOB Cough is the most bothersome Was feel nauseas at the beginning of the week, 10-15 min after taking she vomited. This happened twice, after starting new MVI. Took w/o food, Has since stopped MVI. cont w/ some mild nausea w/o vomiting. LMP 1 week ago, no chance of . EXAM: Awake alert NAD Sclera and conjunctiva clear bilat Nares with clear drainage, turbinates edematous R>L, + R frontal sinus tenderness with palpation TM intact bilat, erythematous and injected on R, dull on L MMM, pharynx + PND RRR LS CTAB, mild cough w/o distress Plan: Azithromycin and Tessalon. Advised okay to take Tessalon 200 mg at bedtime however no more than 300 mg daily. Okay to use Flonase nasal spray but no other nasal sprays. Advised to hold off on the a multivitamin at this time until she was feeling better. Once feeling better try taking 30 minutes after eating to see if this quell Z abdominal side effects of nausea and vomiting. Educated on reasons to return to the office or seek additional care. [facility] Medical History (Updated 06/02/24 @ 16:27 by Carmita Philip, [facility]-) Vitamin D deficiency B12 deficiency Elevated liver transaminase level History of non anemic vitamin B12 deficiency Refused influenza vaccine Obesity (BMI 30.0-34.9) Seizure disorder Chronic GERD Endometriosis Breakthrough bleeding on OCPs History of COVID-19 COVID-19 Anxiety Surgical History History of esophagogastroduodenoscopy (EGD) [place] teeth removed Hx of tonsillectomy Family History Father Diabetes mellitus Mother HTN (hypertension) Arrhythmia Depression Hx of cholecystectomy Maternal Grandmother Cancer Uterine cancer Maternal Grandfather CVD (cardiovascular disease) History of heart attack Paternal Grandmother Cancer Paternal Grandfather Diabetes mellitus Paternal Aunt Breast cancer History of open heart surgery Paternal Uncle Diabetes mellitus Brother Substance use disorder Social History Housing: House Alcohol intake: current Alcohol intake frequency: holidays/special occasions only Patient Tobacco Use Status: Never used Tobacco e-Cigarette/Vaping Use: Never Used Second Hand Smoke Exposure: No service: No Current occupational status: employed 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 (2) Post-nasal drip: Code(s): R09.82 - Postnasal drip Plan: . (3) Cough: Code(s): R05.9 - Cough, unspecified Qualifiers: Cough type: acute Qualified Code(s): R05.1 - Acute cough Plan: . Medications: New azithromycin For 250 mg dose pack: take 500 mg today (day 1), then 250 mg for 4 days (days 2-5) PO 5 days 6 tabs 0RF benzonatate 100 mg PO TID 10 days PRN 30 caps 1RF cough Coding Level of Care Code Est Pt Level 3 (41816) Diagnoses Acute bacterial sinusitis J01.90; B96.89 Post-nasal drip R09.82 Acute cough R05.1 Cough type: acute
[2024-07-16 10:13] VITALS: BP 110/69; PULSE 76; RESP 13; O2SAT 95; BMI 30.5
== END 2024-07-16 10:32 | disposition home or self-care (01) ==
PROVIDERS: PCP Internal Medicine; Visit Provider Nurse Practitioner Family
DX: J01.90 Acute sinusitis, unspecified (principal); B96.89 Other specified bacterial agents as the cause of diseases classified elsewhere; R09.82 Postnasal drip; R05.1 Acute cough

== ENCOUNTER → 2024-07-16 10:00 | Outpatient (BNVA) | payer OTHER, SELFPAY | PROVIDERS: PCP Internal Medicine ==

== ENCOUNTER 2024-09-29 13:04 | Outpatient (AMB) | payer OTHER, SELFPAY ==
--- NOTE | 2024-09-29 13:09 | AM.OFFWIN_ITS ---
Intake Vital Signs 3 09/29/24 13:12 Height 5 ft Weight 158 lb BMI 30.9 BP 132/72 Blood Pressure Location Lt brachial Position Sitting Respiration 13 Pulse 71 Pulse Source Pulse Oximeter Temp 98.3 F Temp Source Oral Pulse Oximetry (%) 98 Oxygen Delivery Method Room Air Intake Visit Reasons: Rash in arms and back Intake Note: Patient complaining of rash on both arms and itchy, and also her top of her back Patient Tobacco Use Status: Never used Tobacco Allergies amoxicillin [AMOXICILLIN] Allergy (Intermediate, Verified 09/29/24 13:41) rash Penicillins [PENICILLINS] Allergy (Unknown, Verified 09/29/24 13:41) rash as above Medication List - Last Reconciled 09/29/24 by Carmita Philip, EDUCATION ADVISER- escitalopram oxalate (Lexapro) 5 mg PO DAILY lorazepam 0.5 mg PO DAILY PRN pantoprazole 40 mg PO DAILY Do you need a note to return to daycare/school/sports/work: No HPI HPI Comments 2 History of Present Illness0 Details The patient is a 29-year-old female presenting with a rash. The rash began approximately three weeks ago, starting on the R elbow and subsequently spreading to other areas, including the back. The patient describes the lesions as hives, characterized by intense itching and a bumpy, raised appearance. Itching worsens with heat, such as after entering the shower or wearing a sweatshirt. The patient reports no recent changes in detergents, medications, or lotions, which she has been using for two years. Applying lotion tends to exacerbate the itching. The patient?s brother has a history of eczema, and she suspects a similar condition, although she worries it could be something else due to the sudden onset. Previous interventions include the application of jagq-[id number] hydrocortisone, which offered minimal relief. 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 - Prescribe permethrin cream to be used as a precautionary measure against potential scabies or other bug infestations. - Recommend use of greasy topical moistu rizer, such as A&D ointment, to maintain skin hydration. - Instruction to monitor symptoms and re turn if the condition worsens or fails to improve, particularly if spreading occurs or further evaluation for dermatological consultation is needed. Patient was informed and verbally consented to the use of an ambient scribe for clinic note documentation during this visit. Discussion Notes I discussed with the patient the possibility of the rash being eczema or an allergic contact dermatitis, noting the typical presentation and locations affected. We explored the potential of it being a reaction to heat or an underlying bug infestation, such as scabies, given the worsening with warmth. I advised use of the prescribed topical steroid ointment, emphasizing that it should be applied sparingly. Given the heat sensitivity and potential linear rash distribution on her back, I suggested the use of permethrin cream as a precaution. We reviewed application protocols for both treatments, emphasizing the importance of not mixing topical steroids. I instructed the patient on symptoms to watch for and when to seek re-evaluation or referral to dermatology if there was no improvement. We also discussed the potential for seasonal or environmental factors affecting her skin. Patient Instructions - Apply beta-methasone topically twice d aily to affected areas sparingly, avoiding mixing with other topical steroids. - Apply permethrin cream according to th e provided instructions, if needed, and repeat if symptoms persist in two weeks. - Use a greasy moisturizer such as A&D o intment to help maintain skin hydration. - Monitor for symptom improvement or wor sening. If conditions do not improve, contact the office for further evaluation. - Consider avoiding heat and maintaining a cool environment to potentially reduce itchiness. - Upload pictures if needed to the [employer] portal if conditions persist or return to the clinic for further assessment. RIGHT AC LEFT AC RIGHT ELBOW UPPER BACK TOTAL TIME SPENT CARING FOR THE PATIENT TODAY WAS 30 MINUTES. THIS INCLUDES TIME SPENT BEFORE THE VISIT REVIEWING THE CHART, TIME SPENT DURING THE VISIT, AND TIME SPENT AFTER THE VISIT ON DOCUMENTATION, REVIEWING LABORATORY RESULTS, DIAGNOSTIC IMAGING, MEDICATIONS, PERFORMING A MEDICALLY NECESSARY EVALUATION, COUNSELING ON DIAGNOSES, CARE COORDINATION, ORDERING APPROPRIATE TESTS, ORDERING APPROPRIATE MEDICATIONS, REVIEW OF TESTS PERFORMED BY OTHER PROVIDERS, REPORTING TEST RESULTS WITH THE PATIENT, COMMUNICATION WITH OTHER HEALTHCARE PROVIDERS. [facility] Medical History (Updated 06/02/24 @ 16:27 by Carmita Philip, EDUCATION ADVISER-BC) Vitamin D deficiency B12 deficiency Elevated liver transaminase level History of non anemic vitamin B12 deficiency Refused influenza vaccine Obesity (BMI 30.0-34.9) Seizure disorder Chronic GERD Endometriosis Breakthrough bleeding on OCPs History of COVID-19 COVID-19 Anxiety Surgical History History of esophagogastroduodenoscopy (EGD) [place] teeth removed Hx of tonsillectomy Family History Father Diabetes mellitus Mother HTN (hypertension) Arrhythmia Depression Hx of cholecystectomy Maternal Grandmother Cancer Uterine cancer Maternal Grandfather CVD (cardiovascular disease) History of heart attack Paternal Grandmother Cancer Paternal Grandfather Diabetes mellitus Paternal Aunt Breast cancer History of open heart surgery Paternal Uncle Diabetes mellitus Brother Substance use disorder Social History Housing: House Alcohol intake: current Alcohol intake frequency: holidays/special occasions only Patient Tobacco Use Status: Never used Tobacco e-Cigarette/Vaping Use: Never Used Second Hand Smoke Exposure: No service: No Current occupational status: employed 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 Medications: New 2 permethrin 5% apply second treatment 14 days after first treatment if live lice remain 1 appl topical Q14D 60 grams 0RF betamethasone dipropionate 0.05% 1 appl topical BID PRN 45 grams 2RF skin irritation Coding Level of Care Code Est Pt Level 4 (04428) Diagnoses Skin rash R21
[2024-09-29 13:12] VITALS: BP 132/72; PULSE 71; RESP 13; TEMP 36.8; O2SAT 98; BMI 30.9
--- OUTSIDE RECORDS SUMMARY | 2024-09-29 15:00 | XMS_ITS | Encounter Summary ---
Author Organization [facility] Address [address] [place] [address] Phone Care Team Providers Care Logistic Specialist Name Role Phone Mary Fuentes DO Primary Care Provider [phone] Encounter Details Date Type Department Care Team (Late st Contact Info) Description 04/24/2017 Conversion Encounter [facility] [place] [address] [place] [address] Social History Tobacco Use Types Packs/Day Years Used Date Smoking Tobacco: Never Assessed Comments Unknown Sex and Gender Information Value Date Recorded Sex Assigned at Not on file Legal Sex Female 4:40 PM EDT Gender Identity Not on file Sexual Orientation Not on file documented as of this encounter Plan of Treatment Not on file documented as of this encounter Visit Diagnoses Not on filedocumented in this encounter Care Teams Logistic Specialist Relationship Specialty Start Date End Date Mary Fuentes DO [address] [place] [address] PCP - General 04/18/17 10/24/22 documented as of this encounter
--- OUTSIDE RECORDS SUMMARY | 2024-09-29 15:00 | XMS_ITS | Encounter Summary ---
Author Organization [facility] Address [address] [place] [address] Phone Care Team Providers Care Semi Truck Driver Name Role Phone Mary Fuentes DO Primary Care Provider [phone] Encounter Details Date Type Department Care Team (Late st Contact Info) Description 11/25/2011 Documentation [facility] [place] [address] [place] [address] Family Medicine, Physician [address] [place], [place] [phone] Social History Tobacco Use Types Packs/Day Years [...] on filedocumented in this encounter Care Teams Semi Truck Driver Relationship Specialty Start Date End Date Mary Fuentes DO [address] [place] [address] [place] [address] PCP - General 04/18/17 10/24/22 documented as of this encounter
--- OUTSIDE RECORDS SUMMARY | 2024-09-29 15:00 | XMS_ITS | Encounter Summary ---
Author Organization [facility] Address [address] [place] [address] Phone Care Team Providers Care Chair Name Role Phone Mary Fuentes DO Primary Care Provider [phone] Encounter Details Date Type Department Care Team (Late st Contact Info) Description 11/20/2011 Documentation [facility] [place] Family Medicine [address] [place] [address] Family Medicine, Physician [address] [place], [place] [phone] Social History Tobacco Use Types Packs/Day Years [...] on filedocumented in this encounter Care Teams Chair Relationship Specialty Start Date End Date Mary Fuentes DO [address] [place] [address] [place] [address] PCP - General 04/18/17 10/24/22 documented as of this encounter
--- OUTSIDE RECORDS SUMMARY | 2024-09-29 15:00 | XMS_ITS | Encounter Summary ---
Author Organization [facility] Address [address] [place] [address] Phone Care Team Providers Care Brazer Production Line Name Role Phone Mary Fuentes DO Primary Care Provider [phone] Encounter Details Date Type Department Care Team (Late st Contact Info) Description 01/15/2012 Documentation [facility] [place] Family Medicine [address] [place] [address] Family Medicine, Physician [address] [place], [place] [phone] Social History Tobacco Use Types Packs/Day Years [...] on filedocumented in this encounter Care Teams Brazer Production Line Relationship Specialty Start Date End Date Mary Fuentes DO [address] [place] [address] [place] [address] PCP - General 04/18/17 10/24/22 documented as of this encounter
--- OUTSIDE RECORDS SUMMARY | 2024-09-29 15:00 | XMS_ITS | Encounter Summary ---
Author Organization [facility] Address [address] [place] [address] Phone Care Team Providers Care Stair Builder Name Role Phone Mary Fuentes DO Primary Care Provider [phone] Encounter Details Date Type Department Care Team (Late st Contact Info) Description 05/25/2012 Documentation [facility] [place] [address] [place] [address] Family Medicine, Physician [address] [place], [place] [phone] Social History Tobacco Use Types Packs/Day Years [...] on filedocumented in this encounter Care Teams Stair Builder Relationship Specialty Start Date End Date Mary Fuentes DO [address] [place] [address] [place] [address] PCP - General 04/18/17 10/24/22 documented as of this encounter
--- OUTSIDE RECORDS SUMMARY | 2024-09-29 15:00 | XMS_ITS | Encounter Summary ---
Author Organization [facility] Address [address] [place] [address] Phone Care Team Providers Care Agri Business Agent Name Role Phone Mary Fuentes DO Primary Care Provider [phone] Encounter Details Date Type Department Care Team (Late st Contact Info) Description 11/18/2011 Documentation [facility] [place] [facility] [place] [address] [place] [address] Family Medicine, Physician [address] [place], [place] [phone] Social History Tobacco Use Types Packs/Day Years [...] on filedocumented in this encounter Care Teams Agri Business Agent Relationship Specialty Start Date End Date Mary Fuentes DO [address] [place] [address] [place] [address] PCP - General 04/18/17 10/24/22 documented as of this encounter
--- OUTSIDE RECORDS SUMMARY | 2024-09-29 15:00 | XMS_ITS | Encounter Summary ---
Author Organization [facility] Address [address] [place] [address] Phone Care Team Providers Care Quill Picking Machine Operator Name Role Phone Mary Fuentes DO Primary Care Provider [phone] Encounter Details Date Type Department Care Team (Late st Contact Info) Description 05/26/2012 Documentation [facility] [place] Family Medicine [address] [place] [address] Family Medicine, Physician [address] [place], [place] [phone] Social History Tobacco Use Types Packs/Day Years [...] on filedocumented in this encounter Care Teams Quill Picking Machine Operator Relationship Specialty Start Date End Date Mary Fuentes DO [address] [place] [address] [place] [address] PCP - General 04/18/17 10/24/22 documented as of this encounter
--- OUTSIDE RECORDS SUMMARY | 2024-09-29 15:00 | XMS_ITS | Clinical Summary ---
Author Organization [facility] Address [address] [place] [address] Phone Care Team Providers Care Amusement Ride Operator Name Role Phone Unavailable Primary Care Provider Unavailabl e Immunizations Name Administration Dates Next Due DTP 10/09/1994, 4,1993, 993 DTaP 5 03/09/1998 Hep B, ped/adol 1993,1993,1993 Hib (PRP-T) 06/26/1994, 4,1993, 993 Influenza, injectable, trivalent 06/21/2009 MMR 05/12/1997,03/21/1994 Meningococcal Conj (Menactra) MCV4P 12/28/2010 OPV 03/09/1998, 5,1993, 993 Tdap 08/26/2005 Varicella 10/25/2009,03/09/1998 Family History Relation Name Status Comments Brother Alive Brother: Alive and well Father Alive Father: Diabeti c Mother Alive Mother: Alive a nd well Other Family history of Diabetes mellitus Social History Tobacco Use Types Packs/Day Years Used Date Smoking Tobacco: Never Assessed Comments Unknown Sex and Gender Information Value Date Recorded Sex Assigned at Not on file Legal Sex Female 4:40 PM EDT Gender Identity Not on file Sexual Orientation Not on file Last Filed Vital Signs Vital Sign Reading Time Taken Comments Blood Pressure 102/70 11/15/2011 12:00 AM EST Pulse - - Temperature 36.6 ??C (97.9 ??F) 07/09/2011 12:00 AM E DT Respiratory Rate - - Oxygen Saturation - - Inhaled Oxygen Concentration - - Weight 45.6 kg (100 lb 8 oz) 11/15/2011 12:00 AM EST Height 152.4 cm (5') 11/15/2011 12:00 AM EST Body Mass Index 19.63 11/15/2011 12:00 AM EST Plan of Treatment Health Maintenance Due Date Last Done Comments Consider Men B Vaccine (1 of 2 - Bexsero 2-dose series) 2009 DTaP,Tdap,and Td Vaccines (7 - Td or Tdap) 08/26/2015 08/26/2005, 03/09/1998, 10/09/1994, Additional history exists Influenza Vaccines (#1) 2024 06/21/2009 COVID-19 Vaccine ( season) 2024 Hepatitis B Vaccines Completed 1993, 1993, 1993 HIB Vaccines Completed 06/26/1994, 09/09, 1993, Additional history exists MMR Vaccines Completed 05/12/1997, 03/21/1994 IPV Vaccines Completed 03/09/1998, 09/1994, 1993, Additional history exists Varicella Vaccines Completed 10/25/2009, 03/09/1998 Meningococcal Vaccine Completed 12/28/2010 HPV Vaccines Aged Out No longer eligi ble based on patient's age to complete this topic Hepatitis A Vaccines Aged Out No long er eligible based on patient's age to complete this topic Men B Vaccine Aged Out No longer elig ible based on patient's age to complete this topic Pneumococcal Vaccine Aged Out No long er eligible based on patient's age to complete this topic Procedures * Due to [facility] law, this organization might not be sharing sensitive test results. Procedure Name Priority Date/Time Associated Diagnosis Comments CHLAMYDIA AND GONORRHEA, AMPLIFIED Routine 11/18/2011 2:39 PM EDT from Last 3 Months or Most Recently Relevant to Health Maintenance Results * Due to [place] opinions.h law, this organization might not be sharing sensitive test results. * Chlamydia and Gonorrhoea, Amplified (11/18/2011 2:39 PM EDT) Pathologist [facility] URINE GC AMP PROBE NEGATIVE [facility] Comment: NO NEISSERIA GONORRHOEAE RNA DETECTED IN THIS PATIENT'S SAMPLE. ? (REFERENCE RANGE/NORMAL VALUE: NOT DETECTED) ? NOTE: THIS TEST USES TRANSPORT NURSE MEDIATED AMPLIFICATION METHOD TO DETECT rRNA FROM C.TRACHOMATIS AND N.GONORRHOEAE. A NEGATIVE RESULT DOES NOT PRECLUDE INFECTION WITH C.TRACHOMATIS OR N.GONORRHOEAE BECAUSE RESULTS ARE DEPENDENT ON ADEQUATE SPECIMEN COLLECTION, ABSENCE OF INHIBITORS, AND SUFFICIENT rRNA TO BE DETECTED. THE APTIMA COMBO2 ASSAY IS NOT INTENDED FOR THE EVALUATION OF SUSPECTED SEXUAL ABUSE OR FOR OTHER MEDICO LEGAL INDICATIONS. IS TRUE FOR ALL NON CULTURE METHODS, A POSITIVE SPECIMEN OBTAINED FROM A PATIENT AFTER THERAPEUTIC TREATMENT CANNOT BE INTERPRETED INDICATING THE PRESENCE OF VIABLE C.TRACHOMATIS OR N.GONORRHOEAE. THERAPEUTIC FAILURE OR SUCCESS CANNOT BE DETERMINED WITH THE APTIMA COMBO2 ASSAY SINCE NUCLEIC ACID MAY PERSIST FOLLOWING APPROPRIATE ANTIMICROBIAL THERAPY. A NEGATIVE URINE RESULT FOR A PATIENT WHO IS CLINICALLY SUSPECTED OF HAVING A CHLAMYDIAL OR GONOCOCCAL INFECTION DOES NOT RULE OUT THE PRESENCE OF C.TRACHOMATIS OR N.GONORRHOEAE IN THE UROGENITAL TRACT. TESTING OF AN ENDOCERVICAL(FEMALE) OR URETHRAL(MALE) SPECIMEN IS RECOMMENDED IF THERE IS HIGH CLINICAL SUSPICION OF INFECTION. PRESERVCYT LIQUID PAP AND URINE SAMPLING ARE NOT DESIGNED TO REPLACE CERVICAL EXAMS AND ENDOCERVICAL SAMPLES FOR DIAGNOSIS OF FEMALE UROGENITAL INFECTIONS. PATIENTS MAY HAVE CERVICITIS, URETHRITIS, URINARY TRACT INFECTIONS, OR VAGINAL INFECTIONS DUE TO OTHER CAUSES OR CONCURRENT INFECTIONS WITH OTHER AGENTS. URINE CHLAMYDIA AMP PROBE NEGATIVE [facility] Comment: NO CHLAMYDIA TRACHOMATIS RNA DETECTED IN THIS PATIENT'S SAMPLE. ? (REFERENCE RANGE/NORMAL VALUE: NOT DETECTED) 11/18/2011 2:39 PM EDT Narrative [facility] - 11/18/2011 2:39 PM EDT URINE CHLAMYDIA GC AMP PROBE us Mary Fuentes DO LAB MICROBIOLOGY - GENERAL ORDER VANDA Final Result [facility] [address] [place] [address], [place] from Last 3 Months or Most Recently Relevant to Health Maintenance
--- OUTSIDE RECORDS SUMMARY | 2024-09-29 15:01 | XMS_ITS | Encounter Summary ---
Author Organization [facility] Address [address] [place] [address] Phone Care Team Providers Care Proposal Engineer Name Role Phone Mary Fuentes DO Primary Care Provider Encounter Details Date Type Department Care Team (Late st Contact Info) Description 11/18/[address] [facility] [place] Family Medicine [address] [place] [address] Family Medicine, Physician [address] [place], [place] [phone] Social History Tobacco Use Types Packs/Day Years [...] on filedocumented in this encounter Care Teams Proposal Engineer Relationship Specialty Start Date End Date Mary Fuentes DO [address] [place] [address] [place] [address] PCP - General 04/18/17 10/24/22 documented as of this encounter
--- OUTSIDE RECORDS SUMMARY | 2024-09-29 15:01 | XMS_ITS | Encounter Summary ---
Author Organization [facility] Address [address] [place] [address] Phone Care Team Providers Care Costumer Assistant Name Role Phone Mary Fuentes DO Primary Care Provider [phone] Encounter Details Date Type Department Care Team (Late st Contact Info) Description 11/12/2010 Documentation [facility] [place] Family Medicine [address] [place] [address] Family Medicine, Physician [address] [place], [place] [phone] Social History Tobacco Use Types Packs/Day Years [...] on filedocumented in this encounter Care Teams Costumer Assistant Relationship Specialty Start Date End Date Mary Fuentes DO [address] [place] [address] [place] [address] PCP - General 04/18/17 10/24/22 documented as of this encounter
--- OUTSIDE RECORDS SUMMARY | 2024-09-29 15:01 | XMS_ITS | Encounter Summary ---
Author Organization [facility] Address [address] [place] [address] Phone Care Team Providers Care Schedule Analyst Name Role Phone Mary Fuentes DO Primary Care Provider [phone] Encounter Details Date Type Department Care Team (Late st Contact Info) Description 01/26/2010 Documentation [facility] [place] Family Medicine [address] [place] [address] Family Medicine, Physician [address] [place], [place] [phone] Social History Tobacco Use Types Packs/Day Years [...] on filedocumented in this encounter Care Teams Schedule Analyst Relationship Specialty Start Date End Date Mary Fuentes DO [address] [place] [address] [place] [address] PCP - General 04/18/17 10/24/22 documented as of this encounter
--- OUTSIDE RECORDS SUMMARY | 2024-09-29 15:01 | XMS_ITS | Encounter Summary ---
Author Organization [facility] Address [address] [place] [address] Phone Care Team Providers Care Wood Heel Cementer Name Role Phone Mary Fuentes DO Primary Care Provider [phone] Encounter Details Date Type Department Care Team (Late st Contact Info) Description 03/13/2011 Documentation [facility] [place] Family Medicine [address] [place] [address] Family Medicine, Physician [address] [place], [place] [phone] Social History Tobacco Use Types Packs/Day Years [...] on filedocumented in this encounter Care Teams Wood Heel Cementer Relationship Specialty Start Date End Date Mary Fuentes DO [address] [place] [address] [place] [address] PCP - General 04/18/17 10/24/22 documented as of this encounter
--- OUTSIDE RECORDS SUMMARY | 2024-09-29 15:01 | XMS_ITS | Encounter Summary ---
Author Organization [facility] Address [address] [place] [address] Phone Care Team Providers Care Ticket Dispatcher Name Role Phone Mray Fuentes DO Primary Care Provider [phone] Encounter Details Date Type Department Care Team (Late st Contact Info) Description 11/12/2010 Documentation [facility] [place] [address] [place] [address] Family Medicine, Physician [address] [place], [place] [phone] Social History Tobacco Use Types Packs/Day Years [...] on filedocumented in this encounter Care Teams Ticket Dispatcher Relationship Specialty Start Date End Date Mary Fuentes DO [address] [place] [address] [place] [address] PCP - General 04/18/17 10/24/22 documented as of this encounter
--- OUTSIDE RECORDS SUMMARY | 2024-09-29 15:01 | XMS_ITS | Encounter Summary ---
Author Organization [facility] Address [address] [place] [address] Phone Care Team Providers Care Secretary Specialist Name Role Phone Mary Fuentes DO Primary Care Provider [phone] Encounter Details Date Type Department Care Team (Late st Contact Info) Description 04/18/2011 Documentation [facility] [place] [address] [place] [address] Family Medicine, Physician [address] [place], [place] [phone] Social History Tobacco Use Types Packs/Day Years [...] on filedocumented in this encounter Care Teams Secretary Specialist Relationship Specialty Start Date End Date Mary Fuentes DO [address] [place] [address] [place] [address] PCP - General 04/18/17 10/24/22 documented as of this encounter
--- OUTSIDE RECORDS SUMMARY | 2024-09-29 15:01 | XMS_ITS | Encounter Summary ---
Author Organization [facility] Address [address] [place] [id number] Phone Care Team Providers Care Body And Fender Mechanic Apprentice Name Role Phone Mary Fuentes DO Primary Care Provider [phone] Encounter Details Date Type Department Care Team (Late st Contact Info) Description 11/12/2010 Documentation [facility] Family Medicine [address] [place] [address] Family Medicine, Physician [address] [place], [place] [phone] Social History Tobacco Use Types Packs/Day Years [...] on filedocumented in this encounter Care Teams Body And Fender Mechanic Apprentice Relationship Specialty Start Date End Date Mary Fuentes DO [address] [place] [address] [place] [address] PCP - General 04/18/17 10/24/22 documented as of this encounter
== END 2024-09-29 13:58 | disposition home or self-care (01) ==
PROVIDERS: PCP Nurse Practitioner Family; Visit Provider Nurse Practitioner Family
DX: R21 Rash and other nonspecific skin eruption (principal)

== ENCOUNTER 2025-02-25 08:51 | Outpatient (AMB) | payer OTHER, SELFPAY ==
--- OUTSIDE RECORDS SUMMARY | 2025-02-25 08:59 | XMS_ITS | Clinical Summary ---
Author Organization [facility] Address [address] [place] [id number] Phone Care Team Providers Care Rodeo Performer Name Role Phone Unavailable Primary Care Provider Unavailabl e Immunizations Immunization Administration Dates Next Due DTP 10/09/1994, 4,1993, [...] AM EST Pulse - - Temperature 36.6 C (97.9 F) 07/09/2011 12:00 AM EDT Respiratory Rate - - Oxygen Saturation - - Inhaled Oxygen Concentration - - Weight 45.6 kg (100 lb 8 oz) 11/15/2011 12:00 AM EST Height 152.4 cm (5') 11/15/2011 12:00 AM EST Body Mass Index 19.63 11/15/2011 12:00 AM EST Plan of Treatment Health Maintenance Due Date Last Done Comments DTaP,Tdap,and Td Vaccines (7 - Td or [...] complete this topic Procedures * Due to [place] [employer] law, this organization might not be sharing sensitive test results. Procedure Name Priority Date/Time Associated Diagnosis Comments CHLAMYDIA AND GONORRHEA, AMPLIFIED Routine 11/18/2011 2:39 PM EDT from Last 3 Months or Most Recently Relevant to Health Maintenance Results * Due to [place] [employer] law, this organization might not be sharing sensitive test results. * Chlamydia and Gonorrhoea, Amplified (11/18/2011 2:39 PM EDT) URINE GC AMP PROBE NEGATIVE [facility] Comment: NO NEISSERIA GONORRHOEAE RNA DETECTED IN THIS PATIENT'S SAMPLE. (REFERENCE RANGE/NORMAL VALUE: NOT DETECTED) NOTE: THIS TEST USES COMMERCIAL LEASING AGENT MEDIATED AMPLIFICATION METHOD TO DETECT rRNA FROM [...] AGENTS. URINE CHLAMYDIA AMP PROBE NEGATIVE [facility] Comment: NO CHLAMYDIA TRACHOMATIS RNA DETECTED IN THIS PATIENT'S SAMPLE. (REFERENCE RANGE/NORMAL VALUE: NOT DETECTED) 11/18/2011 2:39 PM EDT Narrative [facility] - 11/18/2011 2:39 PM EDT URINE CHLAMYDIA GC AMP PROBE us Mary Fuentes DO LAB MICROBIOLOGY - GENERAL ORDER VANDA Final Result [facility] [address] [place] [address], [place] from Last 3 Months or Most Recently Relevant to Health Maintenance
--- NOTE | 2025-02-25 09:01 | A.OFFPC_ITS ---
Vital Signs 3 02/25/25 09:05 Height 5 ft Weight 150 lb 4 oz BMI 29.3 BP 112/68 Blood Pressure Location Rt brachial Position Sitting Respiration 13 Pulse 73 Pulse Source Pulse Oximeter Temp 98.8 F Temp Source Temporal Artery Scan Pulse Oximetry (%) 98 Oxygen Delivery Method Room Air Intake Visit Reasons: rash on scalp Intake Note: Lu presents in the office today for a rash on her scalp, arms, back and neck. Allergies amoxicillin (AMOXICILLIN) Allergy (Intermediate, Verified 02/25/25 09:31) rash Penicillins (PENICILLINS) Allergy (Unknown, Verified 02/25/25 09:31) rash as above Medication List - Last Reconciled 02/25/25 by Carmita Philip, [employer]- betamethasone dipropionate 0.05% 1 appl topical BID PRN escitalopram oxalate (Lexapro) 5 mg PO DAILY lorazepam 0.5 mg PO DAILY PRN pantoprazole 40 mg PO DAILY Tobacco use date assessed: 02/25/25 Dental Screening Dental Screen Date: 02/25/25 Did you have a dental visit in the last 12 months?: Yes Did you have a dental problem in the last 6 months where you did not have access to dental care?: No Was dental information given to patient?: Patient has dentist HPI HPI Comments 2 History of Present Illness0 Details Here today with c/o itchy rash present on and off for months now she takes eduardo QD I saw her a few months ago for the same thing given betamethasone which only provided short lived local relief. shows me pics today of inflammed hive like areas on her back, scalp and bilat elbows. See below These areas then flatten out but never go away no known triggers denies systemic sx. Plan Refer to allergy immunology start high dose antihistamine zyrtec 20mg po BID Betamethasone for local relief Total time spent caring for the patient today was 30 minutes. This includes time spent before the visit reviewing the chart, time spent during the visit, and time spent after the visit on documentation, reviewing laboratory results, diagnostic imaging, medications, performing a medically necessary evaluation, counseling on diagnoses, care coordination, ordering appropriate tests, ordering appropriate medications, review of tests performed by other providers, reporting test results with the patient, communication with other healthcare providers. [facility] Medical History (Updated 02/25/25 @ 09:37 by Carmita Philip, [facility]) Vitamin D deficiency B12 deficiency Elevated liver transaminase level History of non anemic vitamin B12 deficiency Refused influenza vaccine Obesity (BMI 30.0-34.9) Seizure disorder Chronic GERD Endometriosis Breakthrough bleeding on OCPs History of COVID-19 COVID-19 Anxiety Surgical History History of esophagogastroduodenoscopy (EGD) [place] teeth removed Hx of tonsillectomy Family History Father Diabetes mellitus Mother HTN (hypertension) Arrhythmia Depression Hx of cholecystectomy Maternal Grandmother Cancer Uterine cancer Maternal Grandfather CVD (cardiovascular disease) History of heart attack Paternal Grandmother Cancer Paternal Grandfather Diabetes mellitus Paternal Aunt Breast cancer History of open heart surgery Paternal Uncle Diabetes mellitus Brother Substance use disorder Social History (Updated 02/25/25 @ 09:05 by Almaz Ruth MA) Housing: House Alcohol intake: current Alcohol intake frequency: holidays/special occasions only Patient Tobacco Use Status: Never used Tobacco e-Cigarette/Vaping Use: Never Used Second Hand Smoke Exposure: No Use of substances other than those prescribed or required for medical reasons: Yes Substance Use Type: Marijuana service: No Current occupational status: employed 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 Cognitive needs: No Hearing needs: No Vision needs: Yes Female Reproductive History Menstrual Age of Menarche: 9 Questionnaire Thrive Questionnaire Date Thrive assessed: 09/29/24 I am a: Patient What is your living situation today?: I have a steady place to live Within the past 12 months, did the food you bought not last and you didn't have the money to get more?: Never true Within the past 12 months, did you worry whether your food would run out before you got money to buy more?: Never true Do you have trouble paying for medicines?: No Do you have trouble getting transportation to medical appointments?: No Do you have trouble paying your heating and electricity bill?: No Do you have trouble taking care of your child, family member or friend?: No Do you have trouble with day-to-day activities such as bathing, preparing meals, shopping, managing finances, etc.?: No Are you currently unemployed and looking for a job?: No Are you interested in more education?: No Please select the resources that you would like help with: None Currently or been in a relationship where the following occur: No concerns reported THRIVE Score: 0 MARIELY-7 AMB Questionnaire MARIELY-7 Date MARIELY - 7 assessed: 06/02/24 Source: Developed by Drs. Nick Rodrigues, Korina Ott, Jeremy Lew and colleagues, with an educational jailene from [employer]. Physical exam (Primary Care) Vital Signs: Last Vital Signs Temp 98.8 F 02/25/25 09:05 Pulse 73 02/25/25 09:05 Resp 13 02/25/25 09:05 BP 112/68 02/25/25 09:05 Pulse Ox 98 02/25/25 09:05 Oxygen Delivery Method Room Air 02/25/25 09:05 BMI result Body Mass Index 29.3 Tobacco/Smoking Status: Tobacco use Status Tobacco use date assessed 02/25/25 02/25/25 09:11 Patient Tobacco Use Status Never used Tobacco 02/25/25 09:05 e-Cigarette/Vaping Use Never Used 02/25/25 09:05 Thrive Assessment: Date of Thrive Assessment Date Thrive assessed 09/29/24 02/25/25 09:01 Currently or been in a relationship where the following occur: No concerns reported Coding Level of Care Code Est Pt Level 4 (14343) Complex EM visit Add On G2211 Diagnoses Urticaria L50.9 Assessment & Plan Assessment & Plan (1) Urticaria: Code(s): L50.9 - Urticaria, unspecified Category: Medical Plan . Orders: Referrals 2 Allergy & Immunology Referral L50.9 - Urticaria, unspecified Medications: New 2 cetirizine (Zyrtec) 20 mg (2 x 10 mg) PO BID PRN 30 tabs 0RF allergy symptoms Refilled 2 betamethasone dipropionate 0.05% 1 appl topical BID PRN 45 grams 2RF skin irritation
[2025-02-25 09:05] VITALS: BP 112/68; PULSE 73; RESP 13; TEMP 37.1; O2SAT 98; BMI 29.3
== END 2025-02-25 09:48 | disposition home or self-care (01) ==
LOC: HO.HMCFM 08:52
PROVIDERS: PCP Nurse Practitioner Family; Visit Provider Nurse Practitioner Family
DX: L50.9 Urticaria, unspecified (principal)

== ENCOUNTER → 2025-02-25 08:51 | Outpatient (BNVA) | payer OTHER, SELFPAY | PROVIDERS: PCP Nurse Practitioner Family; Visit Provider Nurse Practitioner Family | DX: Z13.89 Encounter for screening for other disorder (principal) ==

== ENCOUNTER 2025-03-21 11:53 | Outpatient (AMB) | payer OTHER, SELFPAY ==
--- NOTE | 2025-03-21 11:55 | A.OFFPC_ITS ---
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: No Allergies amoxicillin (AMOXICILLIN) Allergy (Intermediate, Verified 03/21/25 12:05) rash Penicillins (PENICILLINS) Allergy (Unknown, Verified 03/21/25 12:05) rash as above Medication List - Last Reconciled 03/21/25 by Carmita Philip, [employer]INE ENVIRONMENTAL ENGINEER- betamethasone dipropionate 0.05% 1 appl topical BID PRN cetirizine (Zyrtec) 20 mg (2 x 10 mg) PO BID PRN escitalopram oxalate (Lexapro) 5 mg PO DAILY lorazepam 0.5 mg PO DAILY PRN pantoprazole 40 mg PO DAILY Tobacco use date assessed: 03/21/25 Dental Screening Dental Screen Date: 03/21/25 Did you have a dental visit in the last 12 months?: Yes Did you have a dental problem in the last 6 months where you did not have access to dental care?: No Was dental information given to patient?: Patient has dentist HPI HPI Comments History of Present Illness Details 30 y/o F with obesity, complex ovarian c yst, GERD, Seizure disorder remote (last 2021, no longer on meds; was on Keppra), 6 mm unilocular pineal gland cyst (Brain MRI 01/2022), MARIELY, elevated LFTS, Vit D def, B12 def w/o anemia, endometriosis, umbilical hernia (CT Abd 10/2021) s/p tonsillectomy, wisdom teeth removal Social: lives at home w/ mom, brother and 5 year old nephew,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 Derm new referral but may not need Allergy and Immune 04/08/2025 Neuro - not currently active GI - not currently active Here today for CPE Feels well Mood stable on meds GERD stable on PPI Urticaria better w/ high dose zyrtec. breaks out in hives and becomes itchy if misses a dose has first appt w/ allergy coming up Dentist using invisalign with + effect. No Sz. ROS: Constitutional: Denies fever. Eye: Denies eye pain. ENMT: Denies sore throat and nasal congestion. Respiratory: Denies shortness of breath and cough. Gastrointestinal: Denies nausea, vomiting or abdominal pain. Cardiovascular: Denies chest pain and syncope. Genitourinary: Denies dysuria. Musculoskeletal: Denies back pain and extremity pain. Neurologic: Denies headaches, confusion, and weakness. Psychiatric: Denies suicidal thoughts and substance abuse. Allergy/ Immunologic: Denies impaired immunity. EXAM: General: Well developed, well nourished, in no acute distress. Appears stated age. Head: Normocephalic, atraumatic. Eyes: Pupils are equal, round and reactive to light and accommodation. Conjunctivae are clear. Vision grossly normal. Ears: TMs clear AU, EACS WNL Nose: Patent, without discharge. Mouth: There are no ulcers or lesions noted. No inflammation, no post nasal drip, no plaques nor exudates. Neck: Supple, no adenopathy or thyromegaly. Lungs: Clear to auscultation bilaterally. No rales, rhonchi or wheeze noted. Good air flow in all rogers. Heart: Regular rate and rhythm. No murmurs, click, rubs or gallops are noted. Abdomen: Bowel sounds present in all quadrants. The abdomen is soft, nontender, with no masses or organomegaly noted. No hernias are noted. Musculoskeletal: Joints are nontender, without swelling, redness, or effusions. Range of motion is observed to be normal. Pulses: Peripheral pulses are equal and palpable bilaterally. Extremities: No clubbing, cyanosis nor edema is noted. Neurologic: Gait and station normal. Cranial Nerves 2-12 intact. Motor strength grossly symmetrical and intact. No sensory loss. Balance normal. Skin: No rashes, ulcers, or lesions noted. Turgor is good. Skin color is good. Hair and nails are without abnormalities. Psych: Normal eye contact, affect and mood appropriate, and normal interactions. Patient is alert and appropriate to context. Plan Routine screening labs today FU with specialists and care team Cont all meds RTO 1 year CPE sooner PRN [facility], [facility] Medical History (Updated 03/21/25 @ 07:52 by Carmita Philip [facility]) Anxiety B12 deficiency Breakthrough bleeding on OCPs Chronic GERD COVID-19 Elevated liver transaminase level Endometriosis History of COVID-19 History of non anemic vitamin B12 deficiency Obesity (BMI 30.0-34.9) Refused influenza vaccine Seizure disorder Vitamin D deficiency Surgical History History of esophagogastroduodenoscopy (EGD) Hx of tonsillectomy [place] teeth removed Family History Father Diabetes mellitus Mother HTN (hypertension) Arrhythmia Depression Hx of cholecystectomy Maternal Grandmother Cancer Uterine cancer Maternal Grandfather CVD (cardiovascular disease) History of heart attack Paternal Grandmother Cancer Paternal Grandfather Diabetes mellitus Paternal Aunt Breast cancer History of open heart surgery Paternal Uncle Diabetes mellitus Brother Substance use disorder Social History (Updated 02/25/25 @ 09:05 by Almaz Ruth MA) Housing: House Alcohol intake: current Alcohol intake frequency: holidays/special occasions only Patient Tobacco Use Status: Never used Tobacco e-Cigarette/Vaping Use: Never Used Second Hand Smoke Exposure: No Substance Use Type: Marijuana service: No Current occupational status: employed 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 1. Little interest or pleasure in doing things: not at all 2. Feeling down, depressed, or hopeless: not at all 3. Trouble falling or staying asleep, or sleeping too much: not at all 4. Feeling tired or having little energy: not at all 5. Poor appetite or overeating: not at all 6. Feeling bad about yourself - or that you are a failure or have let yourself or your family down: not at all 7. Trouble concentrating on things, such as reading the newspaper or watching television: not at all 8. Moving or speaking so slowly that other people could have noticed. Or the opposite - being so fidgety or restless that you have been moving around a lot more than usual: not at all 9. Thoughts that you would be better off or of hurting yourself in some way: not at all Total score: 0 Depression Screening Interpretation: Negative Depression Screening Done: Yes 75828 - PHQ-9 Billing: Yes Source: Developed by Drs. Nick Rodrigues, Korina Ott, Jeremy Lew and colleagues, with an educational jailene from [employer]. Thrive Questionnaire Date Thrive assessed: 03/21/25 I am a: Patient What is your living situation today?: I have a steady place to live Within the past 12 months, did the food you bought not last and you didn't have the money to get more?: Never true Within the past 12 months, did you worry whether your food would run out before you got money to buy more?: Never true Do you have trouble paying for medicines?: No Do you have trouble getting transportation to medical appointments?: No Do you have trouble paying your heating and electricity bill?: No Do you have trouble taking care of your child, family member or friend?: No Do you have trouble with day-to-day activities such as bathing, preparing meals, shopping, managing finances, etc.?: No Are you currently unemployed and looking for a job?: No Are you interested in more education?: No Please select the resources that you would like help with: None Currently or been in a relationship where the following occur: No concerns reported THRIVE Score: 0 MARIELY-7 AMB Questionnaire MARIELY-7 Date MARIELY - 7 assessed: 03/21/25 Feeling nervous, anxious, or on edge: 0 = Not at all Not being able to stop or control worryin = Not at all Worrying too much about different things: 0 = Not at all Trouble relaxin = Not at all Being so restless that it is hard to sit still: 0 = Not at all Becoming easily annoyed or irritable: 0 = Not at all Feeling afraid as if something awful might happen: 0 = Not at all Total MARIELY-7 score (0-4 normal; 5-9 mild; 10-14 moderate; 15-21 severe): 0 Source: Developed by Drs. Nick Rodrigues, Korina Ott, Jeremy Lew and colleagues, with an educational jailene from [employer]. MARIELY-7 Assessment Billing MARIELY-7 Assessment Tool: MRAIELY-7 Assessment 38420 Physical exam (Primary Care) Vital Signs: Last Vital Signs Temp 97.2 F 03/21/25 11:59 Pulse 79 03/21/25 11:59 Resp 12 03/21/25 11:59 BP 122/70 03/21/25 11:59 Pulse Ox 99 03/21/25 11:59 Oxygen Delivery Method Room Air 03/21/25 11:59 BMI result Body Mass Index 30.3 BMI Assessment/Plan discussion: High BMI High, discussed plan: lifestyle Tobacco/Smoking Status: Tobacco use Status Tobacco use date assessed 03/21/25 03/21/25 12:01 Patient Tobacco Use Status Never used Tobacco 03/21/25 12:01 e-Cigarette/Vaping Use Never Used 03/21/25 12:01 PHQ-9: PHQ-9 Score PHQ-9: Total score 0 03/21/25 12:30 Depression Screening Interpretation: Negative Thrive Assessment: Date of Thrive Assessment Date Thrive assessed 03/21/25 03/21/25 12:01 Currently or been in a relationship where the following occur: No concerns reported Coding Level of Care Code Est Pt Prev Care 18-39y(01219) Diagnoses Encounter for general adult medical examination without abnormal findings Z00.00 Obesity (BMI 30.0-34.9) E66.9 Urticaria L50.9 Seizure disorder G40.909 Complex ovarian cyst N83.299 Endometriosis N80.9 Elevated liver transaminase level R74.01 Chronic GERD K21.9 Seasonal allergies J30.2 Vitamin D deficiency E55.9 B12 deficiency E53.8 Generalized anxiety disorder F41.1 Additional Codes MARIELY-7 Assessment Billing - MARIELY-7 Assessment Tool: MARIELY-7 Assessment 26474 ([id number]) PHQ-9 - 34606 - PHQ-9 Billing: Yes ([id number]) Assessment & Plan Assessment & Plan (1) Encounter for general adult medical examination without abnormal findings: Onset Date: ~03/21/25 Code(s): Z00.00 - Encounter for general adult medical examination without abnormal findings Category: Medical (2) Obesity (BMI 30.0-34.9): Code(s): E66.9 - Obesity, unspecified Category: Medical (3) Urticaria: Code(s): L50.9 - Urticaria, unspecified Category: Medical (4) Seizure disorder: Comment: ff'd by Dr. Garcia in past - not on any Sz meds at present Code(s): G40.909 - Epilepsy, unspecified, not intractable, without status epilepticus Category: Medical (5) Complex ovarian cyst: Comment: right Code(s): N83.299 - Other ovarian cyst, unspecified side Category: Medical (6) Endometriosis: Code(s): N80.9 - Endometriosis, unspecified Category: Medical (7) Elevated liver transaminase level: Code(s): R74.01 - Elevation of levels of liver transaminase levels Category: Medical (8) Chronic GERD: Code(s): K21.9 - Gastro-esophageal reflux disease without esophagitis Category: Medical (9) Seasonal allergies: Code(s): J30.2 - Other seasonal allergic rhinitis Category: Medical (10) Vitamin D deficiency: Code(s): E55.9 - Vitamin D deficiency, unspecified Category: Medical (11) B12 deficiency: Code(s): E53.8 - Deficiency of other specified B group vitamins Category: Medical (12) Generalized anxiety disorder: Code(s): F41.1 - Generalized anxiety disorder Category: Medical Plan . Orders: Orders Comprehensive Met. Panel Today E53.8 - Deficiency of other specified B group vitamins, E55.9 - Vitamin D deficiency, unspecified, F41.1 - Generalized anxiety disorder, R74.01 - Elevation of levels of liver transaminase levels, Z00.00 - Encounter for general adult medical examination without abnormal findings Lipid Panel Today E53.8 - Deficiency of other specified B group vitamins, E55.9 - Vitamin D deficiency, unspecified, F41.1 - Generalized anxiety disorder, R74.01 - Elevation of levels of liver transaminase levels, Z00.00 - Encounter for general adult medical examination without abnormal findings Microalbumin, Random (w Creat) Today E53.8 - Deficiency of other specified B group vitamins, E55.9 - Vitamin D deficiency, unspecified, F41.1 - Generalized anxiety disorder, R74.01 - Elevation of levels of liver transaminase levels, Z00.00 - Encounter for general adult medical examination without abnormal findings TSH reflex Free T4 Today E53.8 - Deficiency of other specified B group vitamins, E55.9 - Vitamin D deficiency, unspecified, F41.1 - Generalized anxiety disorder, R74.01 - Elevation of levels of liver transaminase levels, Z00.00 - Encounter for general adult medical examination without abnormal findings Vitamin B12 and Folate Today E53.8 - Deficiency of other specified B group vitamins, E55.9 - Vitamin D deficiency, unspecified, F41.1 - Generalized anxiety disorder, R74.01 - Elevation of levels of liver transaminase levels, Z00.00 - Encounter for general adult medical examination without abnormal findings Complete Blood Count no Diff Today E53.8 - Deficiency of other specified B group vitamins, E55.9 - Vitamin D deficiency, unspecified, F41.1 - Generalized anxiety disorder, R74.01 - Elevation of levels of liver transaminase levels, Z00.00 - Encounter for general adult medical examination without abnormal findings Hemoglobin A1c Today E53.8 - Deficiency of other specified B group vitamins, E55.9 - Vitamin D deficiency, unspecified, F41.1 - Generalized anxiety disorder, R74.01 - Elevation of levels of liver transaminase levels, Z00.00 - Encounter for general adult medical examination without abnormal findings Vitamin D 25-OH Total Today E53.8 - Deficiency of other specified B group vitamins, E55.9 - Vitamin D deficiency, unspecified, F41.1 - Generalized anxiety disorder, R74.01 - Elevation of levels of liver transaminase levels, Z00.00 - Encounter for general adult medical examination without abnormal findings Medications: Refilled pantoprazole 40 mg PO DAILY 90 tabs 3RF Patient Instructions: Health screenings for women You should visit your health care provider from time to time, even if you are healthy. The purpose of these visits is to: Screen for medical issues Assess your risk for future medical problems Encourage a healthy lifestyle Update vaccinations and other preventive care services Help you get to know your provider in case of an illness Information Even if you feel fine, you should still see your provider for regular checkups. These visits can help you avoid problems in the future. For example, the only way to find out if you have high blood pressure is to have it checked regularly. High blood sugar and high cholesterol levels also may not have any symptoms in the early stages. A simple blood test can check for these conditions. There are specific times when you should see your provider or receive specific health screenings. The [place] Preventive Services Task Force publishes a list of recommended screenings. Below are screening guidelines for women ages 18 to 39. BLOOD PRESSURE SCREENING Your blood pressure should be checked at least once every 3 to 5 years if: Your blood pressure is in the normal range (top number less than 120 mm Hg and bottom number less than 80 mm Hg) You don't have risk factors for high blood pressure Ask your provider if you need your blood pressure checked more often if: The top number is 120 to 129 mm Hg or the bottom number is 70 to 79 mm Hg You have diabetes, heart disease, kidney problems, are overweight, or have certain other health conditions You have a first-degree relative with high blood pressure You are Black You had high blood pressure during a If the top number is 130 mm Hg or greater or the bottom number is 80 mm Hg or greater, this is considered stage 1 hypertension. Schedule an appointment with your provider to learn how you can reduce your blood pressure. Watch for blood pressure screenings in your area. Ask your provider if you can stop in to have your blood pressure checked. BREAST CANCER SCREENING Experts do not agree about the benefits of breast self-exams in finding breast cancer or saving lives. Talk to your provider about what is best for you. A screening mammogram is not recommended for most women under age 40. Your provider may discuss and recommend mammograms, MRI scans, or ultrasounds if you have an increased risk for breast cancer, such as: A mother or sister who had breast cancer at a young age (most often starting screening earlier than the age the close relative was diagnosed) You carry a high-risk genetic marker CERVICAL CANCER SCREENING Cervical cancer screening should start at age 21 years unless your provider advises otherwise. After the first test: Women ages 21 through 29 should have a Pap test every 3 years. Exoprts do not agree on whether HPV testing is recommended for this age group. Women ages 30 through 65 should be screened with either a Pap test every 3 years or the HPV test every 5 years or both tests every 5 years (called cotesting ). Women who have been treated for precancer (cervical dysplasia) should continue to have Pap tests for 20 years after treatment or until age 65, whichever is longer. If you have had your uterus and cervix removed (total hysterectomy), and you have not been diagnosed with cervical cancer or precancer (high grade cervical neoplasia), you do not need cervical cancer screening. CHOLESTEROL SCREENING Cholesterol screening should begin at: Age 45 for women with no known risk factors for coronary heart disease Age 20 for women with known risk factors for coronary heart disease Repeat cholesterol screening should take place: Every 5 years for women with normal cholesterol levels More often if changes occur in lifestyle (including weight gain and diet) More often if you have diabetes, heart disease, kidney problems, or certain other conditions DIABETES SCREENING You should be screened for diabetes starting at age 35 and then repeated every 3 years if you have no risk factors for diabetes. Screening may need to start earlier and be repeated more often if you have other risk factors for diabetes, such as: You have a first degree relative with diabetes. You are overweight or have obesity. You have high blood pressure, prediabetes, or a history of heart disease. Screening for diabetes should be done if you are planning to become and you are overweight and have other risk factors such as high blood pressure. DENTAL EXAM Go to the dentist once or twice every year for an exam and cleaning. Your dentist will evaluate if you need more frequent visits. EYE EXAM Have an eye exam every 5 to 10 years before age 40. If you have vision problems, have an eye exam every 2 years or more often if recommended by your provider. You should have an eye exam that includes an examination of your retina (back of your eye) at least every year if you have diabetes. IMMUNIZATIONS Commonly needed vaccines include: Flu shot: get one every year. COVID-19 vaccine: ask your provider what is best for you. Tetanus-diphtheria and acellular pertussis (Tdap) vaccine: have one at or after age 19 as one of your tetanus-diphtheria vaccines if you did not receive it as an adolescent. Tetanus-diphtheria: have a booster (or Tdap) every 10 years. Varicella vaccine: receive 2 doses if you never had chickenpox or the varicella vaccine. Hepatitis B vaccine: receive 2, 3, or 4 doses, depending on your exact circumstances. Measles, mumps, and rubella (MMR) vaccine: receive 1 to 2 doses if you are not already immune to MMR. Your provider can tell you if you are immune. Ask your provider about the human papillomavirus (HPV) vaccine if: You have not received the HPV vaccine in the past You have not completed the full vaccine series (you should catch up on this shot) Ask your provider if you should receive other immunizations if you have certain health problems that increase your risk for some diseases such as pneumonia. INFECTIOUS DISEASE SCREENING Women who are sexually active should be screened for chlamydia and gonorrhea up until age 25. Women 25 years and older should be screened for chlamydia and gonorrhea if at high risk. Screening for hepatitis C: All adults ages 18 to 79 should get a one-time test for hepatitis C. people should be screened at every . Screening for human immunodeficiency virus (HIV): All people ages 15 to 65 should get a one-time test for HIV. Depending on your lifestyle and medical history, you may also need to be screened for infections such as syphilis and HIV, as well as other infections. PHYSICAL EXAM All adults should visit their provider from time to time, even if they are healthy. The purpose of these visits is to: Screen for disease Assess your risk of future medical problems Encourage a healthy lifestyle Update your vaccinations and other preventive care services Maintain a relationship with a provider in case of an illness Your height, weight, and BMI should be checked at every exam. During your exam, your provider may ask you about: Depression and anxiety Diet and exercise Alcohol and tobacco use Safety issues, such as using seat belts, smoke detectors, and intimate partner violence Your medicines and risk for interactions SKIN SELF-EXAM Your provider may check your skin for signs of skin cancer, especially if you're at high risk, such as if you: Have had skin cancer before Have close relatives with skin cancer Have a weakened immune system OTHER SCREENING Talk with your provider about colon cancer screening if you have a strong family history of colon cancer or polyps, or if you have had inflammatory bowel disease or polyps yourself. Routine bone density screening of women under 40 is not recommended.
[2025-03-21 11:59] VITALS: BP 122/70; PULSE 79; RESP 12; TEMP 36.2; O2SAT 99; BMI 30.3
--- OUTSIDE RECORDS SUMMARY | 2025-03-21 13:01 | XMS_ITS | Clinical Summary ---
Author Organization [facility] Address [address] [place] [phone] Phone Care Team Providers Care Edging Catcher Name Role Phone Unavailable Primary Care Provider [...] 08/26/2015 08/26/2005, 03/09/1998, 10/09/1994, Additional history exists COVID-19 Vaccine ( season) 2024 Influenza Vaccines (#1) 2025 06/21/2009 Hepatitis B Vaccines Completed 1993, 1993, 1993 [...] complete this topic Procedures * Due to [place] [employer] law, this organization might not be sharing sensitive test results. Procedure Name Priority Date/Time Associated Diagnosis Comments CHLAMYDIA AND GONORRHEA, AMPLIFIED Routine 11/18/2011 2:39 PM EDT from Last 3 Months or Most Recently Relevant to Health Maintenance Results * Due to [place] [employer] law, this organization might not be sharing sensitive test results. * Chlamydia and Gonorrhoea, Amplified (11/18/2011 2:39 PM EDT) URINE GC AMP PROBE NEGATIVE [facility] Comment: NO NEISSERIA GONORRHOEAE RNA DETECTED IN THIS PATIENT'S SAMPLE. (REFERENCE RANGE/NORMAL VALUE: NOT DETECTED) NOTE: THIS TEST USES COFFEE GRINDER MEDIATED AMPLIFICATION METHOD TO DETECT rRNA FROM [...] OTHER AGENTS. URINE CHLAMYDIA AMP PROBE NEGATIVE [facility] Comment: NO CHLAMYDIA TRACHOMATIS RNA DETECTED IN THIS PATIENT'S SAMPLE. (REFERENCE RANGE/NORMAL VALUE: NOT DETECTED) 11/18/2011 2:39 PM EDT Narrative [facility] - 11/18/2011 2:39 PM EDT URINE CHLAMYDIA GC AMP PROBE us Mary Fuentes DO LAB MICROBIOLOGY - GENERAL ORDER VANDA Final Result [facility] [address] [place] [address], [place] from Last 3 Months or Most Recently Relevant to Health Maintenance
== END 2025-03-21 12:39 | disposition home or self-care (01) ==
LOC: HO.HMCFM 11:54
PROVIDERS: PCP Nurse Practitioner Family; Visit Provider Nurse Practitioner Family
DX: Z00.00 Encounter for general adult medical examination without abnormal findings (principal); E66.9 Obesity, unspecified; G40.909 Epilepsy, unspecified, not intractable, without status epilepticus; Z68.30 Body mass index [BMI] 30.0-30.9, adult; L50.9 Urticaria, unspecified; N83.291 Other ovarian cyst, right side; N80.9 Endometriosis, unspecified; R74.01 Elevation of levels of liver transaminase levels; K21.9 Gastro-esophageal reflux disease without esophagitis; J30.2 Other seasonal allergic rhinitis; E55.9 Vitamin D deficiency, unspecified; E53.8 Deficiency of other specified B group vitamins

== ENCOUNTER 2025-03-21 12:30 | Outpatient (REF) | payer OTHER, SELFPAY ==
[2025-03-21 15:42] LABS: Hematocrit 32.3 % (37.0-47.0); Hemoglobin 10.6 g/dl (12.0-16.0); Mean Corpuscular HGB Conc 32.8 g/dl (31.0-35.0); Mean Corpuscular Hemoglobin 24.0 pg (27.0-33.0); Mean Corpuscular Volume 73.2 fL (80.0-98.0); NRBC Abs Auto 0.000 X10*3/uL (0.0-0.012); NRBC Pct Auto 0.0 /100WBC (0.0-0.2); Platelet Count 257 X10*3/uL (160-400); Red Blood Count 4.41 X10*6/uL (4.20-5.50); White Blood Count 5.6 X10*3/uL (4.8-10.8)
[2025-03-21 15:45] LABS: Hemoglobin A1C 83.4307 umol/L; Total Hemoglobin (HGBA1C) 2775.6484 umol/L
[2025-03-21 16:22] LABS: Alanine Aminotransferase 12 U/L (0-31); Albumin Level 4.2 g/dL (3.5-5.0); Alkaline Phosphatase 57 U/L (39-117); Anion Gap 9 (12-20); Aspartate Amino Transferase 23 U/L (5-31); Blood Urea Nitrogen 11 mg/dL (9-16); Calcium 8.6 mg/dL (8.4-10.2); Carbon Dioxide 27 mmol/L (22-29); Chloride 109 mmol/L (96-108); Cholesterol 219 mg/dL (<200); Estimated Glomerular Filt Rate > 60; Folate 4.6 ng/mL (> or = 4.0); HDL Cholesterol 58 mg/dL (>40); Potassium 3.8 mmol/L (3.3-5.1); Sodium 141 mmol/L (135-145); Total Protein 6.4 g/dL (6.5-8.0); Triglycerides 108 mg/dL (<150); Vitamin B12 214 pg/mL (200-900)
[2025-03-21 16:39] LABS: Microalbum/Creatinine Ratio Ur 5.1 ug/mg cr (<30)
== END 2025-03-21 12:31 | disposition home or self-care (01) ==
LOC: HO.WFDLDS 12:30
PROVIDERS: Visit Provider Nurse Practitioner Family
DX: Z00.00 Encounter for general adult medical examination without abnormal findings (principal); E66.9 Obesity, unspecified; Z68.30 Body mass index [BMI] 30.0-30.9, adult; L50.9 Urticaria, unspecified; G40.909 Epilepsy, unspecified, not intractable, without status epilepticus; N83.299 Other ovarian cyst, unspecified side; N80.9 Endometriosis, unspecified; R74.01 Elevation of levels of liver transaminase levels; K21.9 Gastro-esophageal reflux disease without esophagitis; J30.2 Other seasonal allergic rhinitis; E55.9 Vitamin D deficiency, unspecified; E53.8 Deficiency of other specified B group vitamins; F41.1 Generalized anxiety disorder; Z13.31 Encounter for screening for depression; Z13.39 Encounter for screening examination for other mental health and behavioral disorders
CPT/HCPCS: 36415; 80053; 80061; 82043; 82306; 82570; 82607; 82746; 83036; 84443; 85027; 96127